=== PATIENT | female | born 1995 | race Caucasian/White ===

== ENCOUNTER 2017-12-20 10:56 | Emergency (ER) | payer OTHER ==
[2017-12-20] MEDS ORDERED: PROPARACAINE 0.5% OPHTH DROPS 15 ML BTL BOTH EYES STA (12:26)
[2017-12-20] MEDS ORDERED: IBUPROFEN 600 MG TAB PO STA (12:27)
--- NOTE | 2017-12-20 12:34 | ED ---
Eye Problem HPI - General Chief complaint: Eye Problems Stated complaint: Headache Time Seen by Provider: 12/20/17 11:57 Source: patient Mode of arrival: ambulatory Limitations: no limitations - History of Present Illness Initial comments: 22-year-old female presenting with bilateral eye pressure and blurred vision. Patient states for the last two months she has had constant eye pressure that is worsened by laying flat and improved with Motrin. She states it is associated with blurred vision. One year ago she had similar symptoms but also had hand numbness. She denies any sensory deficits or focal weakness at this time. She states she was seen at an urgent care who prescribed her a nasal steroid for sinusitis. She was referred to an studio model. Patient states she was seen today at Dr. Angel's office. She states he sent her here due to concern for increased IOP and papilledema. Patient denies any other associated symptoms. chief complaint: eye pain Onset/Timin -: month(s) Onset Description: gradual Location: both eyes If Injury: none Eye Symptoms: blurry vision, other (pressure) Severity: mild Consistency: constant Context: recent uri Associated Symptoms: headache - Related Data Previous Rx's Medication Instructions Recorded Ibuprofen [Motrin] 600 mg PO Q6HR PRN #30 tab 12/20/17 Allergies Allergy/AdvReac Type Severity Reaction Status Date / Time No Known Allergies Allergy Verified 12/20/17 12:05 Review of Systems ROS Statement: Those systems with pertinent positive or pertinent negative responses have been documented in the HPI. ROS Other: All systems not noted in ROS Statement are negative. Constitutional: Denies: fever, chills Eyes: Reports: eye pain, vision change. Denies: eye discharge ENT: Denies: ear pain, hearing loss Respiratory: Denies: cough Cardiovascular: Denies: chest pain Neurological: Reports: headache. Denies: weakness, paresthesias, confusion, abnormal gait, vertigo Past Medical History Past Medical History: No Reported History History of Any Multi-Drug Resistant Organisms: None Reported Past Surgical History: No Surgical Hx Reported Past Psychological History: No Psychological Hx Reported Smoking Status: Current every day smoker Past Alcohol Use History: Occasional Past Drug Use History: None Reported General Exam Limitations: no limitations General appearance: alert, in no apparent distress Head exam: Present: atraumatic, normocephalic Eye exam: Present: EOMI, other (No papilledema. Visual acuity: 201/15 both eyes. 20/15 in right and left eye ). Absent: conjunctival injection, nystagmus , periorbital swelling, periorbital tenderness Pupils: Present: mydriatic ENT exam: Absent: mucous membranes dry Respiratory exam: Present: normal lung sounds bilaterally Cardiovascular Exam: Present: regular rate Neurological exam: Present: alert, oriented X3, normal gait, other (No coordination deficit ). Absent: motor sensory deficit Psychiatric exam: Present: normal affect Course Vital Signs 12/20/17 10:59 Temperature 97.7 F Pulse Rate 71 Respiratory 17 Rate Blood Pressure 125/75 O2 Sat by Pulse 100 Oximetry Medical Decision Making - Medical Decision Making 22-year-old male presenting with headache and eye pain. Initial exam the patient is awake, alert, and in no acute distress. VSS. Pupils has bilateral mydriasis secondary to being dilated at Dr. Angel's office. Spoke with Dr. Angel, who stated that he did not refer the patient to the ED. He stated that the patient had mildly elevated IOPs and he thinks she has glaucoma. He stated he instructed her to follow up with him in one month and that at this time the patient does not require any medical intervention. No indication at this time to recheck pressures. Discussed with patient imaging versus not. Will CT at this time as patient has not had imaging of her head before, however she does not have any neurological deficit. Patient's CT was negative for acute process. Her MOONEY had improved with treatment. She was given return to ED instructions and told to follow back up with Dr. Angel in one month. At this time the patient is stable for outpatient follow up of her eye pain and MOONEY. There is no evidence of ICH, life-threatening infection, intracranial lesions, or acute angle closure glaucoma. Disposition Clinical Impression: Headache, Eye pain Disposition: HOME SELF-CARE Condition: Good Instructions: Eye Pain (ED), General Headache (ED) Additional Instructions: Follow-up with her primary care physician in the next 5 days. If you have worsening blurred vision, headache that is not treatable with Motrin or Tylenol , or focal weakness or numbness return to the emergency department. Prescriptions: Ibuprofen [Motrin] 600 mg PO Q6HR PRN #30 tab PRN Reason: Headache Referrals: Ck Angel MD [STAFF PHYSICIAN] - 1-2 days
--- NOTE | 2017-12-20 13:16 | CT ---
EXAMINATION TYPE: CT brain wo con DATE OF EXAM: 12/20/2017 COMPARISON: NONE HISTORY: Patient complains of headache, blurry vision, and dizziness. Papilledema per order. CT DLP: 990 mGycm. Automated Exposure Control for Dose Reduction was Utilized. TECHNIQUE: CT scan of the head is performed without contrast. FINDINGS: There is no acute intracranial hemorrhage, mass effect, or midline shift identified. The ventricles and sulci are within normal limits in size. Foley-white matter differentiation is preserv ed. Persistent anterior metopic suture incidentally noted. Visualized sinuses are clear. The. Visuali zed globes are intact bilaterally. IMPRESSION: No acute intracranial hemorrhage or midline shift is seen. Unremarkable study
[2017-12-20 13:48] VITALS: BP 125/64; PULSE 80; RESP 18; TEMP 99
== END 2017-12-20 13:45 | disposition home or self-care (01) ==
LOC: EC 10:56
DX: R51 Headache (principal); H57.13 Ocular pain, bilateral; H53.8 Other visual disturbances; F17.200 Nicotine dependence, unspecified, uncomplicated
CPT/HCPCS: 70450; 99283

== ENCOUNTER 2019-01-10 23:05 | Emergency (ER) | payer BC, OTHER ==
[2019-01-10 23:12] VITALS: RESP 18; TEMP 98.2
--- NOTE | 2019-01-10 23:49 | ED ---
Female Urogenital HPI - General Source: patient Mode of arrival: ambulatory Limitations: no limitations - History of Present Illness Last Menstrual Period: 12/28/18 <Tatum Quintero - Last Filed: 01/11/19 00:54> <Tonja Pinon - Last Filed: 01/11/19 01:11> - General Chief complaint: Vaginal Bleeding Stated complaint: Vaginal Bleeding, Abdominal Pain Time Seen by Provider: 01/10/19 23:13 - History of Present Illness Initial comments: 23-year-old female patient presents to the emergency department today for evaluation of vaginal bleeding. Patient states that she had intercourse with her girlfriend this evening, states that she had long fingernails and may have c ut her accidentally. Patient states once they were finishing noticed bleeding on the bed. States she did put a pad on has not had a change this pad. States the bleeding has slowed however still present so she was concerned and came here for further evaluation. She states her tetanus vaccine is up-to-date. States her period was 2 weeks ago. Denies any chance of . Patient denies any recent rash, fever, chills, shortness breath, chest pain, abdominal pain, nausea, vomiting, diarrhea, constipation, back pain, numbness, tingling, dizziness, weakness, hematuria, dysuria, urinary urgency, urinary frequency, headache, visual changes, or any other complaints. (Tatum Quintero) - Related Data Previous Rx's Medication Instructions Recorded Ibuprofen [Motrin] 600 mg PO Q6HR PRN #30 tab 12/20/17 Allergies Allergy/AdvReac Type Severity Reaction Status Date / Time No Known Allergies Allergy Verified 01/10/19 23:12 Review of Systems ROS Other: All systems not noted in ROS Statement are negative. <Tatum Quintero - Last Filed: 01/11/19 00:54> ROS Other: All systems not noted in ROS Statement are negative. <Tonja Pinon - Last Filed: 01/11/19 01:11> ROS Statement: Those systems with pertinent positive or pertinent negative responses have been documented in the HPI. Past Medical History Past Medical History: Hypertension History of Any Multi-Drug Resistant Organisms: None Reported Past Surgical History: No Surgical Hx Reported Additional Past Surgical History / Comment(s): wisdom teeth removal, Past Psychological History: No Psychological Hx Reported Smoking Status: Current every day smoker Past Alcohol Use History: Daily Past Drug Use History: None Reported <Tatum Quintero M - Last Filed: 01/11/19 00:54> General Exam Limitations: no limitations General appearance: alert, in no apparent distress, other (This is a well-dev eloped, well-nourished adult female patient in no acute distress. Vital signs upon presentation are temperature 98.2F, pulse 97, respirations 18, blood pressure 133/89, pulse ox 97% on room air.) Respiratory exam: Present: normal lung sounds bilaterally. Absent: respiratory distress, wheezes, rales, rhonchi, stridor Cardiovascular Exam: Present: regular rate, normal rhythm, normal heart sounds. Absent: systolic murmur, diastolic murmur, rubs, gallop, clicks GI/Abdominal exam: Present: soft, normal bowel sounds. Absent: distended, tenderness, guarding, rebound, rigid External exam: Present: other (Patient has a small 1 cm laceration noted to the labia minora on the left side. No active bleeding.) Speculum exam: Present: normal speculum exam. Absent: vaginal bleeding Neurological exam: Present: alert, oriented X3, CN II-XII intact Psychiatric exam: Present: normal affect, normal mood Skin exam: Present: warm, dry, intact, normal color. Absent: rash <Tatum Quintero M - Last Filed: 01/11/19 00:54> Course Vital Signs 01/10/19 01/11/19 01/11/19 23:09 00:07 00:09 Temperature 98.2 F 98.2 F 98.2 F Pulse Rate 97 67 67 Respiratory 18 18 18 Rate Blood Pressure 133/89 113/71 113/71 O2 Sat by Pulse 97 98 98 Oximetry Medical Decision Making <Tatum Quintero M - Last Filed: 01/11/19 00:54> <Tonja Pinon - Last Filed: 01/11/19 01:11> - Medical Decision Making 23-year-old female patient presents to the emergency department today for evaluation of vaginal bleeding after intercourse. Physical examination did reveal a small 1 cm laceration to the left labia minora. Vaginal speculum exam is unremarkable no vaginal bleeding. This was not exhibiting any current bleeding. Did not require repair. We did discuss wound care and sitz baths. She is instructed follow-up with her primary care physician for recheck in 1-2 days. Return parameters discussed in detail patient verbalizes understanding and agrees with this plan. (Tatum Quintero) I was available for consultation in the emergency department. The history and physical exam were done by the midlevel provider. I was consulted for this patient's care. I reviewed the case with the midlevel provider and based on their presentation of the patient, I agree with the assessment, medical decision making and plan of care as documented. (Tonja Pinon) Disposition Is patient prescribed a controlled substance at d/c from ED?: No Time of Disposition: 23:49 <Tatum Quintero - Last Filed: 01/11/19 00:54> <Tonja Pinon - Last Filed: 01/11/19 01:11> Clinical Impression: Laceration of labia minora Disposition: HOME SELF-CARE Condition: Good Instructions (If sedation given, give patient instructions): Laceration (ED) Additional Instructions: Keep area clean and dry. Take Tylenol Motrin for pain control. Do sits baths to aid in healing. Return to the emergency department immediately for any new, worsening, or concerning symptoms. Referrals: Rowan Dill MD [Primary Care Provider] - 1-2 days
[2019-01-11 00:08] VITALS: BP 113/71; PULSE 67
== END 2019-01-11 00:09 | disposition home or self-care (01) ==
LOC: EC 23:05
DX: S31.41XA Laceration without foreign body of vagina and vulva, initial encounter (principal); R10.9 Unspecified abdominal pain; F17.200 Nicotine dependence, unspecified, uncomplicated; W45.8XXA Other foreign body or object entering through skin, initial encounter; Y93.89 Activity, other specified
CPT/HCPCS: 99283

== ENCOUNTER 2019-06-01 19:23 | Emergency (ER) | payer BC, OTHER ==
[2019-06-01 20:02] VITALS: BP 103/63; PULSE 89; RESP 18; TEMP 98
[2019-06-01 20:05] LABS: Amphetamine Screen,Urine Not Detected (NotDetected); Barbiturate Screen,Urine Not Detected (NotDetected); Benzodiazepines Screen,Urine Not Detected (NotDetected); Cocaine Screen,Urine Not Detected (NotDetected); Methadone Screen, Urine Not Detected (NotDetected); Opiate Screen,Urine Not Detected (NotDetected); Oxycodone Screen, Urine Not Detected (NotDetected); Phencyclidine Screen,Urine Not Detected (NotDetected); Tricyclic Antidepressant,Urine Not Detected (NotDetected); Urn Cannabinoid Scrn Not Detected (NotDetected)
--- NOTE | 2019-06-01 21:08 | ED ---
Psych HPI - General Chief Complaint: Psychiatric Symptoms Stated Complaint: Suicidal Time Seen by Provider: 06/01/19 19:27 Source: patient, EMS Mode of arrival: EMS - History of Present Illness Initial Comments: 24-year-old female past history of depression present today for chief complaint of suicidal ideation. Patient states she was walking on her home attending put a belt around her neck. She states that she thought about hanging herself but states that is not how she "wanted to go". Patient states she does struggle depression. Patient states she is not sure if she is really suicidal. Patient states she has had ideations the past. Patient denies any specific life stressors. Patient states she has had increased depression. A friend was concerned that she was talking to when she expressed her what to commit suicide, please were called and placed is brought to the emergency department for evaluation. Upon arrival patient denies current suicidal ideations but admit to suicidal ideations earlier. Patient doesn't depression. Denies homicidal ideation remaining review of systems negative denies attempt at committing suicide denies ingestion upper stricture nonprescription drugs or pills - Related Data Home Medications Medication Instructions Recorded Confirmed No Known Home Medications 06/01/19 06/01/19 Allergies Allergy/AdvReac Type Severity Reaction Status Date / Time No Known Allergies Allergy Verified 06/01/19 20:15 Review of Systems ROS Statement: Those systems with pertinent positive or pertinent negative responses have been documented in the HPI. ROS Other: All systems not noted in ROS Statement are negative. Past Medical History Past Medical History: Hypertension History of Any Multi-Drug Resistant Organisms: None Reported Past Surgical History: No Surgical Hx Reported Additional Past Surgical History / Comment(s): wisdom teeth removal, Past Psychological History: No Psychological Hx Reported Smoking Status: Current every day smoker Past Alcohol Use History: Daily Past Drug Use History: None Reported General Exam - General Exam Comments Initial Comments: General: The patient is awake and alert, in no distress Eye: Pupils are equal, round and reactive to light, extra-ocular movements are intact. No nystagmus. There is normal conjunctiva bilaterally. No signs of icterus. Ears, nose, mouth and throat: There are moist mucous membranes and no oral lesions. Neck: The neck is supple, there is no tenderness or JVD. Cardiovascular: There is a regular rate and rhythm. No murmur, rub or gallop is appreciated. Respiratory: Lungs are clear to auscultation, respirations are non-labored, breath sounds are equal. No wheezes, stridor, rales, or rhonchi. Gastrointestinal: Soft, non-distended, non-tender abdomen without masses or organomegaly noted. There is no rebound or guarding present. Musculoskeletal: Normal ROM, no tenderness. Strength 5/5. Sensation intact. Pulses equal bilaterally 2+. Neurological: A&O x 3. CN II-XII intact, There are no obvious motor or sensory deficits. Coordination appears grossly intact. Speech is normal. Skin: Skin is warm and dry and no rashes or lesions are noted. Psychiatric: Cooperative Limitations: no limitations Course Vital Signs 06/01/19 19:36 Temperature 98 F Pulse Rate 89 Respiratory 18 Rate Blood Pressure 103/63 O2 Sat by Pulse 96 Oximetry Medical Decision Making - Medical Decision Making 24-year-old female presenting for psychiatric evaluation for suicidal ideation with plan. Patient had felt around her neck earlier today. Patient states she struggled to depression denies current suicidal ideations are. Patient has demonstrated quite concerning behaviors including wearing a belt around neck today. Once patient is sober she is medically cleared for EPS evaluation. EPS recommended admission. Patient is agreeable. Patient is stable for transportation to the psychiatric floor. Certified by attending Dr. Pinon - Lab Data Result diagrams: 06/01/19 22:03 Lab Results 06/01/19 06/01/19 06/01/19 Range/Units 19:45 19:45 19:45 WBC (3.8-10.6) k/uL RBC (3.80-5.40) m/uL Hgb (11.4-16.0) gm/dL Hct (34.0-46.0) % MCV (80.0-100.0) fL MCH (25.0-35.0) pg MCHC (31.0-37.0) g/dL RDW (11.5-15.5) % Plt Count (150-450) k/uL Neutrophils % % Lymphocytes % % Monocytes % % Eosinophils % % Basophils % % Neutrophils # (1.3-7.7) k/uL Lymphocytes # (1.0-4.8) k/uL Monocytes # (0-1.0) k/uL Eosinophils # (0-0.7) k/uL Basophils # (0-0.2) k/uL Urine Color Colorless Urine Appearance Clear (Clear) Urine pH 6.0 (5.0-8.0) Ur Specific Golden 1.002 (1.001-1.035) Urine Protein Negative (Negative) Urine Glucose (UA) Negative (Negative) Urine Ketones Negative (Negative) Urine Blood Negative (Negative) Urine Nitrite Negative (Negative) Urine Bilirubin Negative (Negative) Urine Urobilinogen <2.0 (<2.0) mg/dL Ur Leukocyte Esterase Negative (Negative) Urine HCG, Qual Not Detected (Not Detectd) Urine Opiates Screen Not Detected (NotDetected) Ur Oxycodone Screen Not Detected (NotDetected) Urine Methadone Screen Not Detected (NotDetected) Ur Propoxyphene Screen Not Detected (NotDetected) Ur Barbiturates Screen Not Detected (NotDetected) U Tricyclic Antidepress Not Detected (NotDetected) Ur Phencyclidine Scrn Not Detected (NotDetected) Ur Amphetamines Screen Not Detected (NotDetected) U Methamphetamines Scrn Not Detected (NotDetected) U Benzodiazepines Scrn Not Detected (NotDetected) Urine Cocaine Screen Not Detected (NotDetected) U Marijuana (THC) Screen Not Detected (NotDetected) 06/01/19 Range/Units 22:03 WBC 10.1 (3.8-10.6) k/uL RBC 4.73 (3.80-5.40) m/uL Hgb 14.4 (11.4-16.0) gm/dL Hct 41.9 (34.0-46.0) % MCV 88.6 (80.0-100.0) fL MCH 30.4 (25.0-35.0) pg MCHC 34.3 (31.0-37.0) g/dL RDW 11.6 (11.5-15.5) % Plt Count 279 (150-450) k/uL Neutrophils % 68 % Lymphocytes % 25 % Monocytes % 4 % Eosinophils % 2 % Basophils % 0 % Neutrophils # 6.9 (1.3-7.7) k/uL Lymphocytes # 2.5 (1.0-4.8) k/uL Monocytes # 0.4 (0-1.0) k/uL Eosinophils # 0.2 (0-0.7) k/uL Basophils # 0.0 (0-0.2) k/uL Urine Color Urine Appearance (Clear) Urine pH (5.0-8.0) Ur Specific Golden (1.001-1.035) Urine Protein (Negative) Urine Glucose (UA) (Negative) Urine Ketones (Negative) Urine Blood (Negative) Urine Nitrite (Negative) Urine Bilirubin (Negative) Urine Urobilinogen (<2.0) mg/dL Ur Leukocyte Esterase (Negative) Urine HCG, Qual (Not Detectd) Urine Opiates Screen (NotDetected) Ur Oxycodone Screen (NotDetected) Urine Methadone Screen (NotDetected) Ur Propoxyphene Screen (NotDetected) Ur Barbiturates Screen (NotDetected) U Tricyclic Antidepress (NotDetected) Ur Phencyclidine Scrn (NotDetected) Ur Amphetamines Screen (NotDetected) U Methamphetamines Scrn (NotDetected) U Benzodiazepines Scrn (NotDetected) Urine Cocaine Screen (NotDetected) U Marijuana (THC) Screen (NotDetected) Disposition Clinical Impression: Planning to commit suicide, Depression Disposition: TRANSFER TO PSYCH HOSP/UNIT Condition: Stable Is patient prescribed a controlled substance at d/c from ED?: No Referrals: None,Stated [Primary Care Provider] - 1-2 days Time of Disposition: 21:51
[2019-06-01 21:50] LABS: Appearance,Urine Clear (Clear); Bilirubin,Urine Negative (Negative); Blood,Urine Negative (Negative); Color,Urine Colorless; Glucose,Urine (UA) Negative (Negative); Ketones,Urine Negative (Negative); Leukocyte Esterase,Urine Negative (Negative); Nitrite,Urine Negative (Negative); Protein,Urine Negative (Negative); Specific Gravity,Urine 1.002 (1.001-1.035); Urobilinogen,Urine <2.0 mg/dL (<2.0)
[2019-06-01 22:12] LABS: Basophils % (A) 0 %; Eosinophils # (A) 0.2 k/uL (0-0.7); Eosinophils % (A) 2 %; HCT 41.9 % (34.0-46.0); HGB 14.4 gm/dL (11.4-16.0); Lymphocytes # (A) 2.5 k/uL (1.0-4.8); Lymphocytes % (A) 25 %; MCH 30.4 pg (25.0-35.0); MCHC 34.3 g/dL (31.0-37.0); MCV 88.6 fL (80.0-100.0); Mean Platelet Volume 7.1; Monocytes # (A) 0.4 k/uL (0-1.0); Monocytes % (A) 4 %; Neutrophils # (A) 6.9 k/uL (1.3-7.7); Neutrophils % (A) 68 %; Platelet Count 279 k/uL (150-450); RBC 4.73 m/uL (3.80-5.40); RDW 11.6 % (11.5-15.5); WBC 10.1 k/uL (3.8-10.6)
[2019-06-01 22:45] LABS: ALT 17 U/L (9-52); AST 19 U/L (14-36); African American GFR (CKD) >90 (>60 ml/min/1.73 sqM); Albumin 4.2 g/dL (3.5-5.0); Alkaline Phosphatase 61 U/L (38-126); Anion Gap 14 mmol/L; Blood Urea Nitrogen 6 mg/dL (7-17); Calcium 9.2 mg/dL (8.4-10.2); Carbon Dioxide 23 mmol/L (22-30); Chloride 104 mmol/L (98-107); Glucose 94 mg/dL (74-99); Potassium 3.7 mmol/L (3.5-5.1); Sodium 141 mmol/L (137-145); Total Bilirubin 0.3 mg/dL (0.2-1.3)
== END 2019-06-02 06:53 ==
LOC: EC 19:23
DX: F32.9 Major depressive disorder, single episode, unspecified (principal); R45.851 Suicidal ideations; F17.200 Nicotine dependence, unspecified, uncomplicated
CPT/HCPCS: 36415; 80053; 80306; 81003; 81025; 82075; 85025; 99285

== ENCOUNTER → 2019-11-06 | Outpatient (CLI) | payer BC ==
--- NOTE | 2019-11-06 21:19 | MR ---
EXAMINATION TYPE: MR brain wo con DATE OF EXAM: 11/06/2019 COMPARISON: NONE HISTORY: Headache, blurred vision, slurred speech, numbness in fingers TECHNIQUE: T1-weighted sagittal, T2, FLAIR, and diffusion axial, and T2 coronal coronal views of the brain are submitted. FINDINGS: There is no evidence of acute ischemia. The ventricles, basal cisterns, and sulci overlying the conv exities are consistent with the patient's age. There is no mass effect. Craniocervical junction maintained. Sella turcica has a normal appearance. No cerebellopontine angle mass. Changes of chronic sinusitis and mastoiditis are noted. Hypertrophy o f the lymphoid tissue of the nasopharynx. WHITE MATTER: There are approximately 5 areas of abnormal signal seen within the white matter scattered bilaterally . All measure less than 5 mm No lesions perpendicular to ventricular system. No callosal lesions. IMPRESSION: 1. Very mild nonspecific white matter changes can be seen with migraine headaches, hypertension. Philip te microvascular ischemia, vasculitis or demyelinating process not entirely excluded correlate clinic ally. 2. Chronic sinusitis and mastoiditis
== END | disposition home or self-care (01) ==
LOC: RADMRIMAIN 15:49
PROVIDERS: ATTEND Internal Medicine
DX: G43.909 Migraine, unspecified, not intractable, without status migrainosus (principal); I10 Essential (primary) hypertension; R90.89 Other abnormal findings on diagnostic imaging of central nervous system
CPT/HCPCS: 70551

== ENCOUNTER → 2019-12-18 | Outpatient (CLI) | payer OTHER ==
[2019-12-18 14:08] VITALS: BP 136/90; PULSE 80; RESP 16
--- NOTE | 2019-12-19 15:12 | P.PAINPG ---
Subjective Progress Note Date: 12/18/19 This is a 24-year-old patient referred by Dr. Lombardi with a chief complaint of headaches, Dr. Fam has diagnosed patient with occipital neuralgia and referred her for occipital nerve blocks. Pain has been present for approximately 2 years, she has severe headaches approximately 2173 month, which lasts up to one week, she also has moderately severe headaches approximately once a week. Headaches are associated with confusion and forgetfulness, as well as finger and mouth numbness. She currently takes Advil PM and states that she gets some relief from sleeping. Pain starts in the back of her eyes, associated with blurry vision and aura, and then she gets a pressure sensation throughout her head, pain is mostly bilateral. She denies any aggravating factors, relieving factors include heat application, keeping her eyes closed, sleep. She is also being evaluated for multiple sclerosis, she has undergone an MRI which shows suspicious lesions. 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 She has been recently prescribed a medication for migraine prevention, however she is unsure which medication this is, she has not yet started taking it as she is waiting for insurance authorization. In addition to above, 13-point review of systems is also negative for chest pain, shortness of breath, changes in vision, changes in hearing, new onset weakness, abdominal pain, diarrhea, extreme fatigue, malaise, fever, skin changes, homicidal or suicidal ideation, or bowel or bladder incontinence. Physical exam: Vital Signs: Reviewed in EMR GENERAL: Well appearing, in no acute distress PSYCH: Mood and affect is appropriate. Awake, alert, and oriented SKIN: Skin color, texture, turgor normal, no rashes or lesions HEENT: Normocephalic, atraumatic. EOM intact CV: No pedal edema RESP: Respirations are unlabored, no audible wheezing GI: Abdomen non-distended MUSCULOSKELETAL: Bilateral upper extremity strength is normal and symmetric. No atrophy or tone abnormalities are noted. Neck: Mild tenderness to palpation over the cervical paraspinous muscles. Spurling negative, Garrison's sign negative. No obvious deformity or signs of trauma. Normal cervical lordotic curve and normal cervical spine range of motio n. Bilateral occipital Tinel's sign is positive. Extremities: Peripheral joint ROM is full and pain free without obvious instability or laxity in all four extremities. No edema or skin discolorations noted. Gait: Gait is normal NEUR: Bilateral upper extremity coordination and muscle stretch reflexes are physiologic and symmetric. No loss of sensation is noted. Cranial nerves are grossly intact. Imaging: MRI brain reviewed Assessment: 1. Occipital neuralgiabilateral 2. Possible multiple sclerosispatient is being worked up for this Plan: 1. Explanation: We discussed that her headaches could be due to multiple causes including migraine headaches, occipital neuralgia, eye strain. I offered occipital nerve blocks, which she would like to proceed with, however I informed her that the block is unlikely to completely alleviate her pain. She expressed understanding. 2. Investigations: None 3. Counseling: None 4. Procedures: We will schedule bilateral occipital nerve blocks 5. Consultations: None 6. Medications: No changes 7. Disposition: For above-mentioned procedure PQRS Measure Charge Sheet Measure #130: Documentation of Current Meds in Medical Chart: Patient's medications documented in chart Measure #226: Tobacco Use: Screen & Cessation Intervention: Pt not a tobacco user Measure #111: Pneumonia Vaccination: Pneumococcal vaccine NOT administered or previously given Measure #47: Advance Care Plan: Advance care planning discussed & documented, pt chose/unable to give Measure #412: Opioid Treatment Agreement: No documentation of signed opioid treatment agreement Measure #408: Opioid Therapy Follow-up Evaluation: Patient had NO f/u eval minimum every 3 months during opioid therapy Measure #317: Preventitive Care & Scrn High Bld Press & F/U: Pre-hypertensive or hypertensive BP documented, pt will f/u with PCP Measure #128: Body Mass Index (BMI) Screening & Follow-up: BMI documented ABOVE normal parameters - f/u documented Measure #131: Pain Assessment & Follow-up: Pain positive & plan documented, Follow-up scheduled Measure #431: Unhealthy Alcohol Use Preventative Care & Scrn: Patient not identified as an unhealthy alcohol user PQRS Narrative: Smoking Status Never smoker Pain Intensity [None] 0 Scale Used Numeric (1 - 10) Home Medications: Ambulatory Orders ALPRAZolam [Xanax] 0.5 mg PO DAILY PRN 12/14/19 Phentermine HCl [Adipex-P] 37.5 mg PO DAILY 12/14/19 Sertraline [Zoloft] 50 mg PO DAILY 12/14/19 Controlled Substance Measures - Controlled Substance Measures Is patient prescribed a controlled substance at discharge?: No
== END | disposition home or self-care (01) ==
LOC: PNWHC3 13:40
PROVIDERS: ATTEND Anesthesiology
DX: M54.81 Occipital neuralgia (principal); Z79.899 Other long term (current) drug therapy
CPT/HCPCS: 99211

== ENCOUNTER → 2019-12-26 | Day surgery (SDC) | payer OTHER ==
[2019-12-22 13:45] VITALS: BMI 33.6
[~2019-12-26] MED LIST: IV FLUID CONTINUATION 650 ML IV ONE; LACTATED RINGERS 1,000 ML IV SCH; LIDOCAINE 1% (10MG/ML) FOR IV START INTRADERMA ONE; ROPIVACAINE 5MG/ML 20ML VIAL ONE; methylPREDNISolone ACETATE 40 MG/ML 1 ML VIAL ONE
[2019-12-26 07:00] VITALS: RESP 20; TEMP 97.9
[2019-12-26 07:05] LABS: Glucose,Whole Blood 87 mg/dL (75-99)
--- NOTE | 2019-12-26 07:20 | P.GSHP ---
History of Present Illness H&P Date: 12/26/19 This is 24 years old female with a history of chronic severe headache, she is diagnosed with bilateral occipital neuralgia, she is here for bilateral greater occipital nerve block. Past Medical History Past Medical History: Eye Disorder, Hypertension Additional Past Medical History / Comment(s): Severe headaches where she can't see or talk, states has memory loss and her mouth and fingers are tingly. Glaucoma, Optic nerve damage. History of Any Multi-Drug Resistant Organisms: None Reported Past Surgical History: No Surgical Hx Reported Additional Past Surgical History / Comment(s): [place] teeth removal, Laser eye surgery R eye. Past Anesthesia/Blood Transfusion Reactions: No Reported Reaction Past Psychological History: Depression Smoking Status: Never smoker Past Alcohol Use History: Heavy Additional Past Alcohol Use History / Comment(s): Does not smoke, but chews tobacco, states was drinking approx a fifth every day, now drinks less than a fifth every 2 weeks. Has recently had a workup by Dr. Fam for MS. Past Drug Use History: None Reported - Past Family History Mother Family Medical History: No Reported History Medications and Allergies Home Medications Medication Instructions Recorded Confirmed Type ALPRAZolam [Xanax] 0.5 mg PO DAILY PRN 12/14/19 12/22/19 History Phentermine HCl [Adipex-P] 37.5 mg PO DAILY 12/14/19 12/22/19 History Sertraline [Zoloft] 50 mg PO DAILY 12/14/19 12/22/19 History Allergies Allergy/AdvReac Type Severity Reaction Status Date / Time No Known Allergies Allergy Verified 12/22/19 13:35 Surgical - Exam Vital Signs Temp Pulse Resp BP Pulse Ox 97.9 F 77 20 106/52 97 12/26/19 06:58 12/26/19 06:58 12/26/19 06:58 12/26/19 06:58 12/26/19 06:58 Vital Signs: Reviewed in EMR GENERAL: Well appearing, in no acute distress PSYCH: Mood and affect is appropriate. Awake, alert, and oriented SKIN: Skin color, texture, turgor normal, no rashes or lesions HEENT: Normocephalic, atraumatic. EOM intact CV: No pedal edema RESP: Respirations are unlabored, no audible wheezing GI: Abdomen non-distended MUSCULOSKELETAL: Bilateral upper extremity strength is normal and symmetric. No atrophy or tone abnormalities are noted. Neck: Mild tenderness to palpation over the cervical paraspinous muscles. Spurling negative, Garrison's sign negative. No obvious deformity or signs of trauma. Normal cervical lordotic curve and normal cervical spine range of motion. Bilateral occipital Tinel's sign is positive. Extremities: Peripheral joint ROM is full and pain free without obvious instability or laxity in all four extremities. No edema or skin discolorations noted. Gait: Gait is normal NEUR: Bilateral upper extremity coordination and muscle stretch reflexes are physiologic and symmetric. No loss of sensation is noted. Cranial nerves are grossly intact. Assessment and Plan Plan: Assessment and plan= bilateral occipital neuralgia. We will do bilateral occipital nerve block today, procedure risk and benefits and alternatives discussed with patient she agreed with proceeding Time with Patient: Less than 30
--- NOTE | 2019-12-26 07:43 | P.PCN ---
Date of Procedure: 12/26/19 Procedure(s) Performed: Preoperative diagnoses= 1- Greater occipital neuralgia Postoperative diagnoses= same as preoperative diagnosis. Procedure= Bilateral Greater occipital nerve block Anesthesia=none Estimated blood loss=none Procedure indication= the patient had a history of severe chronic neck pain ,and headache, diagnosed with occipital neuralgia exam was positive for severe tenderness over the occipital nerve bilaterally, she will be a good candidate occipital nerve block, patient failed conservative management Procedure description= the patient was seen and identified in the preoperative holding area, risks and benefits and alternative of the procedure and possible complications discussed with the patient, and he agreed with the preceding, patient signed the consent, an IV was started, and vital signs were monitored and were stable throughout the procedure, patient was placed in the sitting position or table and the neck area was prepped and draped with a sterile fashion, vital signs were closely monitored during the procedure, 22-gauge Quincke Spinal needle advanced 1 inch lateral to the occipital protuberance on the right side, at the location of the right occipital nerve , then after negative aspiration for heme and CSF and there was no paresthesia during the injection, 6 ml of Robivacaine 0.5% and 20 mg of Depo-Medrol injected after negative aspiration, the needle removed, and the entire same procedure was repeated for the left Greater occipital nerve. Patient tolerated the procedure well without any complication, The patient returned to supine position after the back was cleaned and a Band- Aid applied, the patient transported to recovery room in stable condition and he was monitored for 30 minutes before he was discharged home and then patient was reexamined before going home and patient was discharged in stable condition and patient will follow up with the pain clinic in a few weeks.
[2019-12-26 07:51] VITALS: BP 123/70; PULSE 86
== END ==
LOC: ORPAIN 06:22
PROVIDERS: ATTEND Specialist
DX: M54.81 Occipital neuralgia (principal); H47.099 Other disorders of optic nerve, not elsewhere classified, unspecified eye; I10 Essential (primary) hypertension; H40.9 Unspecified glaucoma; R41.3 Other amnesia; R20.2 Paresthesia of skin; F32.9 Major depressive disorder, single episode, unspecified; F17.220 Nicotine dependence, chewing tobacco, uncomplicated; Z79.899 Other long term (current) drug therapy
CPT/HCPCS: 81025; 64405; J1030; J2795

== ENCOUNTER 2020-01-01 09:12 | Day surgery (SDC) | payer OTHER ==
[2019-12-28 12:03] VITALS: BMI 34.1
[~2020-01-01 09:12] MED LIST changes: -IV FLUID CONTINUATION 650 ML IV ONE; -LIDOCAINE 1% (10MG/ML) FOR IV START INTRADERMA ONE; +LIDOCAINE 1% (10MG/ML) FOR IV START INTRADERMA PRN; -ROPIVACAINE 5MG/ML 20ML VIAL ONE; -methylPREDNISolone ACETATE 40 MG/ML 1 ML VIAL ONE
[2020-01-01 09:44] VITALS: RESP 16; TEMP 97.7
[2020-01-01] MEDS ORDERED: MIDAZOLAM 2 MG/2 ML VIAL ONE (09:45)
[2020-01-01] MEDS ORDERED: fentaNYL (PF) 50 MCG/ML 2 ML AMP ONE (09:45)
--- NOTE | 2020-01-01 10:19 | P.PCN ---
Date of Procedure: 01/01/20 Surgeon: Racheal Perez Pathology: other Condition: stable Disposition: PACU Description of Procedure: Procedure=1-lumbar puncture .2-opening pressure measurement Preoperative diagnoses= demyelinating lesions in the brain Postoperative diagnosis= same as above Anesthesia= IV sedation with Versed and fentanyl and local lidocaine infiltration 1% 2 mL for skin and subcu infiltration. Condition= stable. Complications=none. Indication for the procedure: The patient was referred to us by her neurologist for diagnostic lumbar puncture to rule out multiple sclerosis. procedure risk and benefits and alternatives discussed with the patient and she was agreeable to proceeding with it. Description of the procedure=the patient was brought into the procedure room and placed in the left lateral position , monitors applied, the back prepped with chlorhexidine , skin was localized with 1% lidocaine, then 22-gauge quinckie Needle advanced slowly at L4 -5 interlaminar space to get access to the intrathecal space. Opening pressure is 27 cm of water .Cerebrospinal fluid was clear with no heme. Only one attempt was needed. No paresthesia was encountered during this procedure .A total of 16 mL of clear cerebrospinal fluid were collected in 4 different tubes. Closing pressure is 18 cm of water. The needle removed, Band-Aid applied , patient tolerated the procedure well without any complications. Further management as per her neurologist.
[2020-01-01] MEDS ORDERED: IV FLUID CONTINUATION 600 ML IV ONE (10:21)
[2020-01-01 10:28] LABS: ALT 16 U/L (4-34); AST 25 U/L (14-36)
[2020-01-01 10:45] LABS: T4, Free (Free Thyroxine) 1.01 ng/dL (0.78-2.19)
[2020-01-01 11:10] VITALS: BP 101/65; PULSE 64
[2020-01-01 11:27] LABS: Glucose,CSF 47 mg/dL (40-70); Total Protein,CSF 27 mg/dL (12-60)
[2020-01-01 11:58] LABS: Appearance,CSF Clear; CSF Tube Number 4
[2020-01-01 11:59] LABS: CSF Tube Volume 4.5; Nucleated Cells, CSF 1 u/L (0-5); Red Blood Cell,CSF 0 u/L (0-10)
[2020-01-01 17:25] LABS: Anti-DNA, DS unit <1.0 IU/mL; Anti-Smith Ab Interp NEGATIVE (NEGATIVE); DNA Double-Stranded NEGATIVE (NEGATIVE)
[2020-01-01 19:01] LABS: Rheumatoid Factor, Qnt 6 IU/mL (0-15)
[2020-01-02 11:06] LABS: Angiotensin-1 Converting Enz. 23 U/L (8-52)
[2020-01-02 12:09] LABS: IgG - CSF 1.6 mg/dL (0.0 - 3.4); IgG/Albumin Index (CSF) 0.46 (0.00 - 0.77)
[2020-01-02 12:39] LABS: VDRL, Qualitative CSF Nonreactive (Nonreactive)
== END 2020-01-01 12:31 ==
LOC: ORPAIN 09:12
PROVIDERS: ATTEND Anesthesiology
DX: G37.9 Demyelinating disease of central nervous system, unspecified (principal); G93.2 Benign intracranial hypertension; H40.9 Unspecified glaucoma
CPT/HCPCS: 81025; 86592; 86235 ×3; 84439; 88108; 84157; 82945; 82040; 82042; 82784; 83916; 82164 ×2; 83873; 84443; 84450; 84460; 86431; 89050; 86618; 86780; 86038; 86225; 87801; 62270; J2250; J3010; 99152; 99153

== ENCOUNTER 2020-01-03 12:32 | Emergency (ER) | payer OTHER ==
[2020-01-03 12:42] VITALS: RESP 18
[2020-01-03] MEDS ORDERED: MAGNESIUM SULFATE-D5W PMX 1 GM in DEXTROSE/WATER 1 100ML.BAG IVPB ONE (13:19)
[2020-01-03] MEDS ORDERED: KETOROLAC 30 MG/ML 1 ML VIAL IVP STA (13:19)
[2020-01-03] MEDS ORDERED: diphenhydrAMINE 50 MG/ML 1 ML VIAL IVP STA (13:19)
[2020-01-03] MEDS ORDERED: METOCLOPRAMIDE 5 MG/ML 2 ML VIAL IVP STA (13:19)
[2020-01-03] MEDS ORDERED: DEXAMETHASONE SOD PHOSPHATE 10 MG/ML 1 ML VIAL IV STA (13:19)
--- NOTE | 2020-01-03 14:08 | ED ---
Headache HPI - General Chief Complaint: Headache Stated Complaint: post spinal tap issues Time Seen by Provider: 01/03/20 12:40 Mode of arrival: ambulatory Limitations: no limitations - History of Present Illness Initial Comments: The patient is a 24-year-old female with past history of occipital neuralgia and possible MS who presents to the emergency room with reported headache. She states that she had a lumbar puncture done on the by anesthesia in our facility. They were performing the puncture to rule out pseudotumor cerebri and MS. The patient is under the care of Dr. Lombardi. She reports that the day of the procedure she went home and is sleeping. She woke the next morning and had intense pain in her head. States this pain is different than her normal he adache pain. States that it is a global ache which starts in the back of her head and wraps around to the front. She has photophobia. Denies fevers or chills. No neck pain or stiffness. The headache is markedly worse when the patient attempts to stand up. States it is much better when she lays down. She has taken one of her "headache medication" and states that it didn't help. Admits to nausea without vomiting. No recent head trauma. No lumbar back pain, redness or swelling. There are no other alleviating, precipitating or modifying factors - Related Data Home Medications Medication Instructions Recorded Confirmed ALPRAZolam [Xanax] 0.25 - 0.5 mg PO DAILY PRN 12/14/19 01/04/20 Phentermine HCl [Adipex-P] 37.5 mg PO DAILY PRN 12/14/19 01/04/20 Sertraline [Zoloft] 50 mg PO DAILY 12/14/19 01/04/20 Ibuprofen/Diphenhydramine HCl 2 cap PO HS PRN 01/04/20 01/04/20 [Advil Pm Liqui-Gels] Allergies Allergy/AdvReac Type Severity Reaction Status Date / Time No Known Allergies Allergy Verified 01/04/20 09:29 Review of Systems ROS Statement: Those systems with pertinent positive or pertinent negative responses have been documented in the HPI. ROS Other: All systems not noted in ROS Statement are negative. Past Medical History Past Medical History: Eye Disorder, Hypertension Additional Past Medical History / Comment(s): Severe headaches where she can't see or talk, states has memory loss and her mouth and fingers are tingly. Glaucoma, Optic nerve damage. History of Any Multi-Drug Resistant Organisms: None Reported Past Surgical History: No Surgical Hx Reported Additional Past Surgical History / Comment(s): [place] teeth removal, Laser eye surgery R eye. PAIN CLINIC PROCEDURES Past Anesthesia/Blood Transfusion Reactions: No Reported Reaction Past Psychological History: Depression Smoking Status: Never smoker Past Alcohol Use History: Occasional Past Drug Use History: None Reported - Past Family History Mother Family Medical History: No Reported History General Exam Limitations: no limitations General appearance: alert, in no apparent distress Head exam: Present: atraumatic, normocephalic, normal inspection Eye exam: Present: normal appearance, PERRL, EOMI. Absent: scleral icterus, conjunctival injection, periorbital swelling ENT exam: Present: normal exam, mucous membranes moist Neck exam: Present: normal inspection. Absent: tenderness, meningismus, lymphadenopathy Respiratory exam: Present: normal lung sounds bilaterally. Absent: respiratory distress, wheezes, rales, rhonchi, stridor Cardiovascular Exam: Present: regular rate, normal rhythm, normal heart sounds. Absent: systolic murmur, diastolic murmur, rubs, gallop, clicks GI/Abdominal exam: Present: soft, normal bowel sounds. Absent: distended, tenderness, guarding, rebound, rigid Extremities exam: Present: normal inspection, full ROM, normal capillary refill. Absent: tenderness, pedal edema, joint swelling, calf tenderness Back exam: Present: normal inspection Neurological exam: Present: alert, oriented X3, CN II-XII intact Psychiatric exam: Present: normal affect, normal mood Skin exam: Present: warm, dry, intact, normal color. Absent: rash Course Vital Signs 01/03/20 01/03/20 12:39 14:58 Temperature 97.5 F L 98.2 F Pulse Rate 105 H 78 Respiratory 18 18 Rate Blood Pressure 127/90 127/72 O2 Sat by Pulse 99 97 Oximetry Medical Decision Making - Medical Decision Making Upon arrival the patient was placed in room 23. A thorough history and physical exam was performed. We did obtain IV access. The patient was given 10 mg of Reglan, 1 g of magnesium, 15 g of Toradol, 50 mg of Benadryl and 10 mg of Decadron. The patient is reevaluated. Continues to report a 5 out of 10 headache. I did recommend blood patch at this time however the patient refused stating that she wanted to go home and "sleep it off". She is able to sit up in bed and ambulate around the emergency department. The patient will be discharged home and is to follow up with her neurologist. Return to the emergency room for any new or worsening symptoms. The patient agreed to this and was discharged home in stable condition Disposition Clinical Impression: Headache following lumbar puncture Disposition: HOME SELF-CARE Condition: Stable Instructions (If sedation given, give patient instructions): Acute Headache (ED) Additional Instructions: Please follow-up with your neurologist in 2-4 days. If you continue to have a headache, or any new or worsening symptoms, return to the emergency department Is patient prescribed a controlled substance at d/c from ED?: No Referrals: Rowan Dill MD [Primary Care Provider] - 1-2 days Torsten Fam MD [STAFF PHYSICIAN] - 1-2 days Time of Disposition: 14:41
[2020-01-03 15:00] VITALS: BP 127/72; PULSE 78; TEMP 98.2
== END 2020-01-03 15:00 | disposition home or self-care (01) ==
LOC: EC 12:32
DX: G97.1 Other reaction to spinal and lumbar puncture (principal); R51 Headache; I10 Essential (primary) hypertension; F32.9 Major depressive disorder, single episode, unspecified; Z79.899 Other long term (current) drug therapy
CPT/HCPCS: 99283; 96365; 96375 ×4; J1200; J1100; J2765; J1885; J3475

== ENCOUNTER 2020-01-04 09:04 | Emergency (ER) | payer OTHER ==
[2020-01-04 09:08] VITALS: BP 111/69; PULSE 95; RESP 17; TEMP 98
[2020-01-04] MEDS ORDERED: HYDROmorphone 0.5 MG/0.5 ML SYRINGE IVP STA (09:54)
[2020-01-04] MEDS ORDERED: CAFFEINE CITRATE 500 MG in DEXTROSE 5% IN WATER 50 ML IVPB STA ×2 (09:54)
[2020-01-04] MEDS ORDERED: SODIUM CHLORIDE 0.9% 1,000 ML IV STA (09:56)
[2020-01-04] MEDS ORDERED: CAFFEINE-SODIUM BENZOATE 500 MG in SODIUM CHLORIDE 0.9% 1,000 ML IVPB ONE (10:15)
--- NOTE | 2020-01-04 11:08 | ED ---
General Adult HPI - General Chief complaint: Headache Stated complaint: Headache Time Seen by Provider: 01/04/20 09:20 Source: patient, RN notes reviewed Mode of arrival: ambulatory Limitations: no limitations - History of Present Illness Initial comments: 24-year-old female presents to the emergency room for a chief complaint of headache. Patient states that she had a spinal tap done by her neurologist 4 days ago. States that this was performed because of white patches found on her brain through an MRI. Patient states her neurologist think she has pseudotumor. States she has had a persistent headache since that time. States the headache improved significantly when lying down and worsens when sitting up. Patient is here in the emergency department yesterday and did have some medications with some improvement however headache returned. Patient denies fevers or chills.Patient has no other complaints at this time including shortness of b reath, chest pain, abdominal pain, nausea or vomiting, or visual changes. - Related Data Home Medications Medication Instructions Recorded Confirmed ALPRAZolam [Xanax] 0.25 - 0.5 mg PO DAILY PRN 12/14/19 01/04/20 Phentermine HCl [Adipex-P] 37.5 mg PO DAILY PRN 12/14/19 01/04/20 Sertraline [Zoloft] 50 mg PO DAILY 12/14/19 01/04/20 Ibuprofen/Diphenhydramine HCl 2 cap PO HS PRN 01/04/20 01/04/20 [Advil Pm Liqui-Gels] Allergies Allergy/AdvReac Type Severity Reaction Status Date / Time No Known Allergies Allergy Verified 01/04/20 09:29 Review of Systems ROS Statement: Those systems with pertinent positive or pertinent negative responses have been documented in the HPI. ROS Other: All systems not noted in ROS Statement are negative. Past Medical History Past Medical History: Eye Disorder, Hypertension Additional Past Medical History / Comment(s): Severe headaches where she can't see or talk, states has memory loss and her mouth and fingers are tingly. Glaucoma, Optic nerve damage. History of Any Multi-Drug Resistant Organisms: None Reported Past Surgical History: No Surgical Hx Reported Additional Past Surgical History / Comment(s): [place] teeth removal, Laser eye surgery R eye. PAIN CLINIC PROCEDURES Past Anesthesia/Blood Transfusion Reactions: No Reported Reaction Past Psychological History: Depression Smoking Status: Never smoker Past Alcohol Use History: Occasional Past Drug Use History: None Reported - Past Family History Mother Family Medical History: No Reported History General Exam Limitations: no limitations General appearance: alert, in no apparent distress Head exam: Present: atraumatic, normocephalic, normal inspection Eye exam: Present: normal appearance, PERRL, EOMI. Absent: scleral icterus, conjunctival injection, periorbital swelling ENT exam: Present: normal exam, mucous membranes moist Neck exam: Present: normal inspection, full ROM. Absent: tenderness, meningismus, lymphadenopathy Respiratory exam: Present: normal lung sounds bilaterally. Absent: respiratory distress, wheezes, rales, rhonchi, stridor Cardiovascular Exam: Present: regular rate, normal rhythm, normal heart sounds. Absent: systolic murmur, diastolic murmur, rubs, gallop, clicks Neurological exam: Present: alert, oriented X3, CN II-XII intact, normal gait Psychiatric exam: Present: normal affect, normal mood Course Vital Signs 01/04/20 09:05 Temperature 98.0 F Pulse Rate 95 Respiratory 17 Rate Blood Pressure 111/69 O2 Sat by Pulse 97 Oximetry Medical Decision Making - Medical Decision Making HPI and physical exam as documented. Yesterday the patient was given migraine cocktail consisting of Reglan, magnesium, Toradol, Benadryl, and Decadron. She did have improvement at that time and wanted to go home. Patient presents again today for persistent headache. Patient was given Dilaudid as well as IV caffeine. States there is minimal improvement but the pain is still a 6 out of 10 and worsens with sitting up. I therefore contacted Dr. Macias about a possible blood patch. He did come down and evaluate patient. They did agree on doing a blood patch today. He states he will fit her in. Occult administered charge who states he could make an SD[facility] account and make patient outpatient procedure. I then called OR scheduling who helped me order the account. They then transferred me to [facility] to discuss this. I discussed this case with Rosa who states that patient can be transferred to recovery, they are ready for her. She requests IV be left in. Disposition Clinical Impression: Headache following lumbar puncture Disposition: HOME SELF-CARE Condition: Good Instructions (If sedation given, give patient instructions): Acute Headache (ED), Lumbar Puncture (ED) Is patient prescribed a controlled substance at d/c from ED?: No Referrals: Rowan Dill MD [Primary Care Provider] - 1-2 days Time of Disposition: 13:21
== END 2020-01-04 13:43 | disposition home or self-care (01) ==
LOC: EC 09:04
DX: G97.1 Other reaction to spinal and lumbar puncture (principal); F32.9 Major depressive disorder, single episode, unspecified; Z79.899 Other long term (current) drug therapy; Y84.4 Aspiration of fluid as the cause of abnormal reaction of the patient, or of later complication, without mention of misadventure at the time of the procedure; Z53.20 Procedure and treatment not carried out because of patient's decision for unspecified reasons
CPT/HCPCS: 99284; 96365; 96375; J1170

== ENCOUNTER 2020-01-04 13:50 | Day surgery (SDC) | payer OTHER ==
[2020-01-04] MEDS ORDERED: SODIUM CHLORIDE 0.9% 1,000 ML IV ONE (14:02)
--- NOTE | 2020-01-04 14:35 | P.CON ---
Consult Note - . Consult date: 01/04/20 Assessment/Plan:: This 24 year old lady comes to the emergency room with history of headache. She had a lumbar puncture done few days ago for diagnostic purposes to rule out demyelinating disease. She went home and next day started having headache which is bifrontal and occipital in location, 8-10 over 10 in intensity, postural in nature aggravated by standing or sitting position and feels better in the supine posture. She also has some photophobia. She came to the emergency room and was given fluids and tried a lot of caffeine but nothing seems to have worked. Anesthesia was consulted for performing epidural blood patch. History and labs were reviewed and informed consent was obtained. The procedure was done under complete aseptic precautions in the PACU area. Patient was positioned in the sitting posture, and the knee chest position and L3-L4 space was identified with previous lumbar puncture callum was noted. The back was cleaned with iodine solution 3 times. 2 mL of 1% lidocaine was infiltrated into the above mentioned space. A 17-gauge Tuhoy needle was inserted into the elbow mentioned space and a loss of resistance to aid with some kind at 3.5cm. The Pre-op nurse obtained 20 mL of blood from the left peripheral IV with fresh venipuncture under aseptic precautions. This was injected under aseptic precautions to the epidural space and any instant relief of headache was noted. The VAS came down to 0 from 10. The epidural needle was taken out. Patient was advised to lay flat for the next half an hour and then can be discharged.
[2020-01-04 14:37] VITALS: RESP 16
[2020-01-04 15:00] VITALS: BP 124/78; PULSE 65
== END 2020-01-04 15:42 | disposition home or self-care (01) ==
LOC: OR 13:50
PROVIDERS: ATTEND Anesthesiology
DX: G97.1 Other reaction to spinal and lumbar puncture (principal)
CPT/HCPCS: 62273

== ENCOUNTER → 2021-01-29 | Outpatient (CLI) | payer BC, OTHER ==
--- NOTE | 2021-01-30 02:44 | MR ---
EXAMINATION TYPE: MR brain wo con DATE OF EXAM: 01/29/2021 COMPARISON: None HISTORY: Headaches, migraines, eye issues, possible pseudotumor cerebri Multiplanar multiecho imaging of the brain was performed without contrast. FINDINGS: Ventricles and sulci appear normal. There is no mass effect nor midline shift. No evidence of intracr anial hemorrhage. Diffusion images show no sign of an acute infarct. The T2 and FLAIR images show fairly normal signal pattern throughout the white matter. There is no ed ryanne. Corpus callosum appears normal. Sella turcica is normal. Brainstem appears normal. IMPRESSION: Normal MR scan of the brain. There is probably minimal right maxillary sinusitis.
== END | disposition home or self-care (01) ==
LOC: RADMRIMAIN 16:31
PROVIDERS: ATTEND Psychiatry & Neurology Neurology
DX: G43.109 Migraine with aura, not intractable, without status migrainosus (principal); G93.2 Benign intracranial hypertension
CPT/HCPCS: 70551

== ENCOUNTER → 2022-10-27 | Outpatient (CLI) | payer BC, OTHER ==
--- NOTE | 2022-10-27 19:21 | CT ---
EXAMINATION TYPE: CT abdomen w con CT DLP: 953.7 mGycm, Automated exposure control for dose reduction was used. DATE OF EXAM: 10/27/2022 6:56 PM COMPARISON: None CLINICAL INDICATION:Female, 27 years old with history of R19.8 R10.33; RUQ and umbilical abdomen sharita n. Pt c/o bleed from umbilicus TECHNIQUE: Axial CT of the abdomen . Sagittal and coronal reformats were created on a separate works tation. Contrast used:100cc mL of Isovue 300 with IV Contrast, Oral contrast used: with Oral Contrast FINDINGS: LOWER CHEST: Unremarkable ABDOMEN Motion limits evaluation the upper abdomen. LIVER: Unremarkable GALLBLADDER AND BILE DUCTS: Gallbladder is not definitively visualized. PANCREAS: Unremarkable. SPLEEN: Unremarkable. ADRENAL GLANDS: Unremarkable. KIDNEYS AND URETERS: No evidence of hydronephrosis or renal calculus. The ureters are unremarkable. PELVIS BLADDER: Unremarkable REPRODUCTIVE: Left ovarian dominant follicles measuring up to 2.7 cm. STOMACH AND BOWEL: No evidence of bowel obstruction. Appendix is normal. PERITONEUM/RETROPERITONEUM: No evidence of pneumoperitoneum or free fluid. . VASCULATURE: No evidence of aortic aneurysm. MUSCULOSKELETAL: No acute osseous abnormalities LYMPH NODES: No gross evidence for lymphadenopathy. SOFT TISSUE/ABDOMINAL WALL: The umbilicus appears within normal limits without evidence of organizing fluid collection or mass. No evidence of organizing fluid collection within the subcutaneous tissues . IMPRESSION: 1. Motion limited exam. No evidence for acute right upper quadrant process. Surgically absent gallbl adder 2. Umbilicus appears within normal limits for CT. 3. Multiple left dominant ovarian follicles which are prominent.
== END | disposition home or self-care (01) ==
LOC: RADCTMAIN 17:21
PROVIDERS: ATTEND Family Medicine
DX: R19.8 Other specified symptoms and signs involving the digestive system and abdomen (principal); R10.33 Periumbilical pain; Z90.49 Acquired absence of other specified parts of digestive tract
CPT/HCPCS: 74160; Q9967 ×2

== ENCOUNTER 2023-02-09 08:47 | Observation (INO) | payer BC, OTHER ==
[2023-02-09] MEDS ORDERED: KETOROLAC 15 MG/ML 1 ML VIAL IVP STA (09:17)
[2023-02-09] MEDS ORDERED: ONDANSETRON 4 MG/2 ML VIAL IVP STA (09:17)
[2023-02-09 09:54] LABS: Partial Thromboplastin Time 25.2 sec (22.0-30.0); Prothrombin Time 10.3 sec (9.0-12.0)
[2023-02-09 10:10] LABS: ALT 14 U/L (4-34); AST 27 U/L (14-36); African American GFR (CKD) >90 (>60 ml/min/1.73 sqM); Albumin 3.4 g/dL (3.5-5.0); Alkaline Phosphatase 45 U/L (38-126); Anion Gap 8 mmol/L; Blood Urea Nitrogen 12 mg/dL (7-17); Calcium 7.6 mg/dL (8.4-10.2); Carbon Dioxide 17 mmol/L (22-30); Chloride 115 mmol/L (98-107); Glucose 73 mg/dL (74-99); Non-African American GFR(CKD) >90 (>60 ml/min/1.73 sqM); Sodium 140 mmol/L (137-145); Total Bilirubin 0.7 mg/dL (0.2-1.3); Total Protein 6.1 g/dL (6.3-8.2)
[2023-02-09 10:12] LABS: Potassium 3.8 mmol/L (3.5-5.1)
[2023-02-09 10:19] LABS: Basophils % (A) 0 %; Eosinophils # (A) 0.1 k/uL (0-0.7); Eosinophils % (A) 1 %; HCT 47.2 % (34.0-46.0); HGB 15.5 gm/dL (11.4-16.0); Lymphocytes # (A) 1.5 k/uL (1.0-4.8); Lymphocytes % (A) 28 %; MCH 30.4 pg (25.0-35.0); MCV 92.1 fL (80.0-100.0); Mean Platelet Volume 7.5; Monocytes # (A) 0.3 k/uL (0-1.0); Monocytes % (A) 6 %; Neutrophils # (A) 3.4 k/uL (1.3-7.7); Neutrophils % (A) 62 %; Platelet Count 216 k/uL (150-450); RBC 5.12 m/uL (3.80-5.40); RDW 12.2 % (11.5-15.5); WBC 5.4 k/uL (3.8-10.6)
--- NOTE | 2023-02-09 10:27 | XR ---
EXAMINATION TYPE: XR chest 2V DATE OF EXAM: 02/09/2023 COMPARISON: NONE HISTORY: Chest pain TECHNIQUE: Frontal and lateral views of the chest are obtained. FINDINGS: There is no focal air space opacity. No evidence for pneumothorax. No pleural effusion. The cardiac silhouette size is within normal limits. The osseous structures are grossly intact. IMPRESSION: 1. No acute cardiopulmonary process.
--- NOTE | 2023-02-09 10:40 | ED ---
General Adult HPI - General Chief complaint: Extremity Problem,Nontraumatic Stated complaint: Pain in shoulder blades Time Seen by Provider: 02/09/23 08:54 Source: patient, RN notes reviewed Mode of arrival: ambulatory Limitations: no limitations - History of Present Illness Initial comments: 27-year-old female presents emergency Department with chief complaint of right- sided shoulder, chest discomfort. Patient states started 1 hour prior arrival states that she was just about to eat food but states never started eating when the pain started. States it hurts to take deep breaths states that she feels like she can't take a deep breath. Patient denies any trauma denies any rashes. Patient states she's had no prior cardiac disease denies any lung disease. Patient states she has no pain into her abdomen but states he was in her shoulder blade but now wraps along her ribs. She denies any fevers or chills no significant cough or cold like symptoms occasionally has a cough. Patient has NO KNOWN DRUG ALLERGIES. Patient states she does have some family chronic history including hypertension, hyperlipidemia. Patient states she does not smo ke but she does use nicotine pouches - Related Data Home Medications Medication Instructions Recorded Confirmed ALPRAZolam [Xanax] 0.25 - 0.5 mg PO DAILY PRN 12/14/19 01/04/20 Phentermine HCl [Adipex-P] 37.5 mg PO DAILY PRN 12/14/19 01/04/20 Sertraline [Zoloft] 50 mg PO DAILY 12/14/19 01/04/20 Ibuprofen/Diphenhydramine HCl 2 cap PO HS PRN 01/04/20 01/04/20 [Advil Pm Liqui-Gels] Allergies Allergy/AdvReac Type Severity Reaction Status Date / Time No Known Allergies Allergy Verified 02/09/23 08:52 Review of Systems ROS Statement: Those systems with pertinent positive or pertinent negative responses have been documented in the HPI. ROS Other: All systems not noted in ROS Statement are negative. Past Medical History Past Medical History: Eye Disorder, Hypertension Additional Past Medical History / Comment(s): Severe headaches where she can't see or talk, states has memory loss and her mouth and fingers are tingly. Glaucoma, Optic nerve damage. History of Any Multi-Drug Resistant Organisms: None Reported Past Surgical History: No Surgical Hx Reported Additional Past Surgical History / Comment(s): [place] teeth removal, Laser eye surgery R eye. PAIN CLINIC PROCEDURES Past Anesthesia/Blood Transfusion Reactions: No Reported Reaction Past Psychological History: Depression Smoking Status: Never smoker Past Alcohol Use History: Occasional Past Drug Use History: None Reported - Past Family History Mother Family Medical History: No Reported History General Exam Limitations: no limitations General appearance: alert, in no apparent distress Head exam: Present: atraumatic, normocephalic, normal inspection Neck exam: Present: normal inspection. Absent: tenderness, meningismus, lymphadenopathy Respiratory exam: Present: normal lung sounds bilaterally. Absent: respiratory distress, wheezes, rales, rhonchi, stridor, chest wall tenderness Cardiovascular Exam: Present: regular rate, normal rhythm, normal heart sounds. Absent: systolic murmur, diastolic murmur, rubs, gallop, clicks GI/Abdominal exam: Present: soft, normal bowel sounds. Absent: distended, tenderness, guarding, rebound, rigid Back exam: Absent: CVA tenderness (R), CVA tenderness (L) Neurological exam: Present: alert Course Vital Signs 02/09/23 08:49 Temperature 97.6 F Pulse Rate 78 Respiratory 18 Rate Blood Pressure 116/76 O2 Sat by Pulse 98 Oximetry EKG Findings - EKG Comments: EKG Findings:: EKG performed at 9:40 sinus rhythm with a rate of 73 UT 148 QRS 108 QT/QTC 410/436 - EKG Results: EKG: interpreted by RUBIN Medical Decision Making - Medical Decision Making Was pt. sent in by a medical professional or institution (, PA, DINKEY OPERATOR SLATE, urgent care, hospital, or intermediate...) When possible be specific @ -No Did you speak to anyone other than the patient for history (EMS, parent, family, police, friend...)? What history was obtained from this source @ -No Did you review nursing and triage notes (agree or disagree)? Why? @ -I reviewed and agree with nursing and triage notes Were old charts reviewed (outside hosp., previous admission, EMS record, old EKG, old radiological studies, urgent care reports/EKG's, intermediate records)? Report findings @ -Presented prior labs the CBC, comp no prior EKG to compare to. Differential Diagnosis (chest pain, altered mental status, abdominal pain women, abdominal pain men, vaginal bleeding, weakness, fever, dyspnea, syncope, headache, dizziness, GI bleed, back pain, seizure, CVA, palpatations, mental health, musculoskeletal)? @ -nDifferential Chest Pain: Stable Angina, Unstable Angina, STEMI, NSTEMI Aortic Dissection, Pneumothorax, Musculoskeletal, Esophageal Spasm GERD, Cholecystitis, Pancreatitis, Zoster, this is not meant to be an all-inclusive list. icable EKG interpreted by me (3pts min.). @ -As above X-rays interpreted by me (1pt min.). @ -Chest x-ray shows no acute process. CT interpreted by me (1pt min.). @ -None done U/S interpreted by me (1pt. min.). @ -None done What testing was considered but not performed or refused? (CT, X-rays, U/S, labs)? Why? @ -Consider CT done d-dimer was negative, x-ray was unremarkable What meds were considered but not given or refused? Why? @ -None Did you discuss the management of the patient with other professionals (professionals i.e. , PA, DINKEY OPERATOR [employer]ATE, lab, RT, psych nurse, forensic social worker, logistics vice president, teacher, chemistry technical officer, child support case officer)? Give summary @ -I did discuss case with Dr. Dsouza on-call for cardiology who comes evaluated the patient. Echocardiogram was ordered. I did discuss case with Dr. Espinal for admission including repeat laboratory studies, cardiology evaluation and echocardiogram Was smoking cessation discussed for >3mins.? @ -No Was critical care preformed (if so, how long)? @ -yes 35 Were there social determinants of health that impacted care today? How? (Home lessness, low income, unemployed, alcoholism, drug addiction, transportation, low edu. Level, literacy, decrease access to med. care, senior living, rehab)? @ -No Was there de-escalation of care discussed even if they declined (Discuss DNR or withdrawal of care, Hospice)? DNR status @ -No What co-morbidities impacted this encounter? (DM, HTN, Smoking, COPD, CAD, Cancer, CVA, ARF, Chemo, Hep., AIDS, mental health diagnosis, sleep apnea, morbid obesity)? @ -None Was patient admitted / discharged? Hospital course, mention meds given and route, prescriptions, significant lab abnormalities, going to OR and other pertinent info. @ -Admitted patient has elevated troponin with right-sided pleuritic chest pain, right shoulder pain. Patient has no EKG changes, chest x-ray patient was started on heparin patient was admitted to medicine with consult cardiology who were both contacted. Undiagnosed new problem with uncertain prognosis? @ -No Drug Therapy requiring intensive monitoring for toxicity (Heparin, Nitro, I nsulin, Cardizem)? @ -Heparin Were any procedures done? @ -No Diagnosis/symptom? @ -Pleuritic chest pain, over the troponin Acute, or Chronic, or Acute on Chronic? @ -Acute Uncomplicated (without systemic symptoms) or Complicated (systemic symptoms)? @ -Complicated Side effects of treatment? @ -No Exacerbation, Progression, or Severe Exacerbation? @ -No Poses a threat to life or bodily function? How? (Chest pain, [place], NM, pneumonia, PE, COPD, DKA, ARF, appy, cholecystitis, CVA, Diverticulitis, Homicidal, Suicidal, threat to staff... and all critical care pts) @ -Yes patient has elevated troponin concerning for cardiac injury and family to cardiac arrest - Lab Data Result diagrams: 02/09/23 09:31 02/09/23 09:31 Lab Results 02/09/23 02/09/23 02/09/23 Range/Units 09:31 09:31 09:31 WBC 5.4 (3.8-10.6) k/uL RBC 5.12 (3.80-5.40) m/uL Hgb 15.5 (11.4-16.0) gm/dL Hct 47.2 H (34.0-46.0) % MCV 92.1 (80.0-100.0) fL MCH 30.4 (25.0-35.0) pg MCHC 33.0 (31.0-37.0) g/dL RDW 12.2 (11.5-15.5) % Plt Count 216 (150-450) k/uL MPV 7.5 Neutrophils % 62 % Lymphocytes % 28 % Monocytes % 6 % Eosinophils % 1 % Basophils % 0 % Neutrophils # 3.4 (1.3-7.7) k/uL Lymphocytes # 1.5 (1.0-4.8) k/uL Monocytes # 0.3 (0-1.0) k/uL Eosinophils # 0.1 (0-0.7) k/uL Basophils # 0.0 (0-0.2) k/uL PT 10.3 (9.0-12.0) sec INR 1.0 (<1.2) APTT 25.2 (22.0-30.0) sec D-Dimer 0.20 (<0.60) mg/L FEU Sodium 140 (137-145) mmol/L Potassium 3.8 (3.5-5.1) mmol/L Chloride 115 H (98-107) mmol/L Carbon Dioxide 17 L (22-30) mmol/L Anion Gap 8 mmol/L BUN 12 (7-17) mg/dL Creatinine 0.60 (0.52-1.04) mg/dL Est GFR (CKD-EPI)AfAm >90 (>60 ml/min/1.73 sqM) Est GFR (CKD-EPI)NonAf >90 (>60 ml/min/1.73 sqM) Glucose 73 L (74-99) mg/dL Calcium 7.6 L (8.4-10.2) mg/dL Total Bilirubin 0.7 (0.2-1.3) mg/dL AST 27 (14-36) U/L ALT 14 (4-34) U/L Alkaline Phosphatase 45 (38-126) U/L Troponin I (0.000-0.034) ng/mL Total Protein 6.1 L (6.3-8.2) g/dL Albumin 3.4 L (3.5-5.0) g/dL 02/09/23 Range/Units 09:31 WBC (3.8-10.6) k/uL RBC (3.80-5.40) m/uL Hgb (11.4-16.0) gm/dL Hct (34.0-46.0) % MCV (80.0-100.0) fL MCH (25.0-35.0) pg MCHC (31.0-37.0) g/dL RDW (11.5-15.5) % Plt Count (150-450) k/uL MPV Neutrophils % % Lymphocytes % % Monocytes % % Eosinophils % % Basophils % % Neutrophils # (1.3-7.7) k/uL Lymphocytes # (1.0-4.8) k/uL Monocytes # (0-1.0) k/uL Eosinophils # (0-0.7) k/uL Basophils # (0-0.2) k/uL PT (9.0-12.0) sec INR (<1.2) APTT (22.0-30.0) sec D-Dimer (<0.60) mg/L FEU Sodium (137-145) mmol/L Potassium (3.5-5.1) mmol/L Chloride (98-107) mmol/L Carbon Dioxide (22-30) mmol/L Anion Gap mmol/L BUN (7-17) mg/dL Creatinine (0.52-1.04) mg/dL Est GFR (CKD-EPI)AfAm (>60 ml/min/1.73 sqM) Est GFR (CKD-EPI)NonAf (>60 ml/min/1.73 sqM) Glucose (74-99) mg/dL Calcium (8.4-10.2) mg/dL Total Bilirubin (0.2-1.3) mg/dL AST (14-36) U/L ALT (4-34) U/L Alkaline Phosphatase (38-126) U/L Troponin I 0.046 H* (0.000-0.034) ng/mL Total Protein (6.3-8.2) g/dL Albumin (3.5-5.0) g/dL Critical Care Time Critical Care Time: Yes Total Critical Care Time: 35 Disposition Clinical Impression: Pleuritic chest pain, Elevated troponin Disposition: ADMITTED IP TO THIS [facility] Condition: Fair Referrals: Lazara Alberto DO [Primary Care Provider] - 1-2 days Time of Disposition: 10:41
[2023-02-09] MEDS ORDERED: HEPARIN SODIUM 1,000 UN/ML (10ML VL) IV PRN (10:51)
[2023-02-09] MEDS ORDERED: HEPARIN SODIUM 1,000 UN/ML (10ML VL) IV ONE (10:51)
[2023-02-09] MEDS ORDERED: ASPIRIN 81 MG PO STA (10:51)
[2023-02-09] MEDS ORDERED: NITROGLYCERIN SL TABS 0.4 MG TAB SUBLINGUAL PRN (10:51)
[2023-02-09 10:58] LABS: Appearance,Urine Clear (Clear); Bilirubin,Urine Negative (Negative); Blood,Urine Negative (Negative); Color,Urine Yellow; Glucose,Urine (UA) Negative (Negative); Ketones,Urine Negative (Negative); Leukocyte Esterase,Urine Moderate (Negative); Mucus,Urine Rare /hpf; Nitrite,Urine Negative (Negative); PH, Urine 5.5 (5.0-8.0); Protein,Urine Negative (Negative); RBC,Urine 1 /hpf (0-5); Specific Gravity,Urine 1.021 (1.001-1.035); Squamous Epithelial Cell,Urine 2 /hpf (0-4); Urobilinogen,Urine <2.0 mg/dL (<2.0); WBC,Urine 3 /hpf (0-5)
[2023-02-09] MEDS ORDERED: HEPARIN SOD,PORK IN 0.45% NACL 25,000 UNIT in 0.45% NACL 1 250ML.BAG IV SCH (11:00)
[2023-02-09 15:17] VITALS: RESP 16
[2023-02-10] MEDS ORDERED: ACETAMINOPHEN TAB 325 MG TAB PO PRN (07:49)
[2023-02-10 08:38] VITALS: TEMP 97.9
[2023-02-10 08:51] LABS: Mean Platelet Volume 7.9; Platelet Count 193 k/uL (150-450)
[2023-02-10] MEDS ORDERED: acetaZOLAMIDE 250 MG TAB PO SCH (09:00)
[2023-02-10] MEDS ORDERED: ASPIRIN 325 MG TAB PO SCH (09:00)
[2023-02-10] MEDS ORDERED: SERTRALINE 100 MG TAB PO SCH (09:00)
--- NOTE | 2023-02-10 09:47 | CA ---
Transthoracic Echo Report Name: Ned Arenas Age: 27 Gender: F : 1995 Exam Date: 02/09/2023 13:04 Exam Location: [facility] Ht (in): 67 Wt (lb): 198 Ordering Physician: Chay Azar Attending/Referring Phys: Property Staff Accountant Marilou Das RDCS Procedure CPT: Indications: chest pain, elevated trop Cardiac Hx: Technical Quality: Good Contrast 1: Total Dose (mL): Contrast 2: Total Dose (mL): MEASUREMENTS (Male / Female) Normal Values 2D ECHO LV Diastolic Diameter PLAX 4.5 cm 4.2 - 5.9 / 3.9 - 5.3 cm LV Systolic Diameter PLAX 3.4 cm IVS Diastolic Thickness 1.1 cm 0.6 - 1.0 / 0.6 - 0.9 cm LVPW Diastolic Thickness 1.0 cm 0.6 - 1.0 / 0.6 - 0.9 cm LV Relative Wall Thickness 0.5 LA Volume 49.2 cm??? 18 - 58 / 22 - 52 cm??? M-MODE Aortic Root Diameter MM 2.6 cm LA Systolic Diameter MM 3.2 cm LA Ao Ratio MM 1.2 AV Cusp Separation MM 1.8 cm DOPPLER AV Peak Velocity 118.9 cm/s AV Peak Gradient 5.7 mmHg AV Mean Velocity 92.9 cm/s AV Mean Gradient 3.7 mmHg AV Velocity Time Integral 26.2 cm LVOT Peak Velocity 95.9 cm/s LVOT Peak Gradient 3.7 mmHg LVOT Velocity Time Integral 19.1 cm MV Area PHT 4.9 cm??? Mitral E Point Velocity 79.7 cm/s Mitral A Point Velocity 93.6 cm/s Mitral E to A Ratio 0.9 MV Deceleration Time 156.0 ms MV E' Velocity 10.3 cm/s Mitral E to MV E' Ratio 7.7 TR Peak Velocity 177.9 cm/s TR Peak Gradient 12.7 mmHg Right Ventricular Systolic Press 17.7 mmHg FINDINGS Left Ventricle Normal Left ventricular size, wall thickness, systolic function with no obvious regional wall motion abnormalities. Normal Left ventricular diastolic filling pattern. Left ventricular ejection fraction is estimated at 55-60 %. Right Ventricle Normal right ventricular size and function. Right ventricular systolic pressure within normal limits. Right Atrium Normal right atrial size. Left Atrium Normal left atrial size. Interatrial septal aneurysm. Mitral Valve Structurally normal mitral valve. Trace mitral regurgitation. Aortic Valve Trileaflet aortic valve. No aortic valve stenosis or regurgitation. Tricuspid Valve Structurally normal tricuspid valve. Trace to mild tricuspid regurgitation. Pulmonic Valve Trace pulmonic regurgitation. Pericardium No pericardial effusion. Aorta Normal size aortic root and proximal ascending aorta. CONCLUSIONS Normal LV systolic function Normal pulmonary artery systolic pressure Normal intracardiac valves Previewed by: Dr. Clay Gary MD (Electronically Signed) Final Date: 10 February 2023 09:46
--- NOTE | 2023-02-10 11:26 | P.CRDCN ---
History of Present Illness Consult date: 02/10/23 Consult reason: chest pain, other (abnormal trop) History of present illness: History of present illness: Patient is a pleasant 27-year-old female with significant past medical history of glaucoma and pseudotumor presented to the emergency department with right shoulder pain and chest discomfort. She reports significant family history of multiple people on her father's side with heart issues. She denies smoking, alcohol or drug use. She reports that around 8:00 yesterday she was sitting on the couch when all of a sudden she developed right shoulder blade pain, this pain was worse with deep breathing and movement. This pain did not get better so she came to the emergency department. She denies any recent injury or strain. The pain did improve with Toradol in the emergency department. Denies any prior history of pain like this, denies any syncope in the past. Labs reviewed: Troponin 0.046,<0.012,<0.012; d-dimer was negative. EKG shows sinus rhythm with sinus arrhythmia, no significant ST or T wave changes, no evidence of pericarditis. She was placed on a heparin drip. She reports the pain does feel a little better this morning. Denies any shortness of breath. Echocardiogram with ejection fraction 5560%, normal intracardiac valves. REVIEW OF SYSTEMS: No fever or chills. No cough or expectoration. No diaphoresi s. Patient denies headache, dizziness, blurred vision, double vision. Patient denies any stomach discomfort. No nausea, vomiting. No hematochezia. No hematemesis. Denies any black stools or blood in his stools. Denies dysuria or hematuria. No muscle weakness or numbness. No chest pain or pressure. Right shoulder pain. PHYSICAL EXAMINATION: This is a 27-year-old female in no apparent distress at t he time of my examination. HEENT: Head is atraumatic, normocephalic. Pupils are equal, round. Sclerae anicteric. Conjunctivae are clear. Mucous membranes of the mouth are moist. Neck is supple. There is no jugular venous distention. No carotid bruit is heard. CHEST EXAMINATION: Lungs are clear to auscultation. No chest wall tenderness is noted on palpation or with deep breathing. HEART EXAMINATION: Heart regular rate and rhythm. S1, S2 heard. No murmurs, gallops or rub. ABDOMEN: Soft, nontender. Bowel sounds are heard. EXTREMITIES: 2+ peripheral pulses with no evidence of peripheral edema and no calf tenderness noted. NEUROLOGIC EXAMINATION: Patient is awake, alert and oriented x3. IMPRESSION AND PLAN: Chest pain, atypical Right shoulder pain Glaucoma Pseudotumor PLAN: Chest pain is atypical, less likely cardiac in more likely musculoskeletal in nature. Initial troponin was elevated however second 2 were completely normal, maybe a lab error. However we will check echocardiogram and stress test to rule out reversible ischemia. Echocardiogram reviewed and unremarkable. Stop heparin. If stress test is unremarkable okay to discharge home. Follow up in 1 week. I am dictating on behalf of Dr. Rad Dsouza's history/physical and assessment/plan. Past Medical History Past Medical History: Eye Disorder, Hypertension Additional Past Medical History / Comment(s): Severe headaches where she can't see or talk, states has memory loss and her mouth and fingers are tingly. Glaucoma, Optic nerve damage. Hypertension has resolved since pt stopped drinking and smoking. History of Any Multi-Drug Resistant Organisms: None Reported Past Surgical History: No Surgical Hx Reported Additional Past Surgical History / Comment(s): [place] teeth removal, Laser eye surgery bilateral eye. PAIN CLINIC PROCEDURES (steroid shots in the back of neck) Past Anesthesia/Blood Transfusion Reactions: No Reported Reaction Past Psychological History: Anxiety, Depression Additional Psychological History / Comment(s): Patient has had a past admission on the mental health unit. Patient has been suicidal in the past but states she hasn't been in years. Smoking Status: Former smoker Past Alcohol Use History: Occasional Additional Past Alcohol Use History / Comment(s): Patient has a history of ETOH and smoking occasionally but never consistently. Patient states she does not drink or smoke anymore but uses nicotine pouches. Past Drug Use History: None Reported - Past Family History Mother Family Medical History: No Reported History Additional Family Medical History / Comment(s): "Heart issues" Father Additional Family Medical History / Comment(s): Father's mother and sister both at a young age of "some sort of heart issue" Medications and Allergies Home Medications Medication Instructions Recorded Confirmed Type L-Theanine(Unknown Dose) 1 cap PO HS 02/09/23 02/09/23 History Sertraline [Zoloft] 100 mg PO DAILY 02/09/23 02/09/23 History acetaZOLAMIDE [Diamox] 250 mg PO DAILY 02/09/23 02/09/23 History Allergies Allergy/AdvReac Type Severity Reaction Status Date / Time promethazine [From Phenergan] AdvReac "face Verified 02/09/23 11:22 dysphoria" Physical Exam Vitals: Vital Signs Temp Pulse Pulse Resp BP BP Pulse Ox 02/10/23 07:50 99 02/10/23 07:46 97.9 F 59 L 16 99/55 99 02/10/23 04:00 97.7 F 56 L 16 103/65 100 02/10/23 02:00 68 16 02/10/23 00:00 98.3 F 68 16 116/76 98 02/09/23 20:00 98.1 F 72 16 97/60 96 02/09/23 16:00 82 02/09/23 15:48 97.9 F 82 16 125/78 97 02/09/23 15:00 68 16 120/60 98 02/09/23 11:26 60 20 116/75 99 02/09/23 11:06 98.1 F 65 16 133/92 100 Intake and Output 02/09/23 02/10/23 02/10/23 22:59 06:59 14:59 Intake Total 540 Balance 540 Intake: Oral 540 Other: Voiding Method Toilet Toilet Toilet # Voids 2 3 Weight 89.811 kg Results 02/10/23 07:08 02/09/23 09:31 Cardiac Enzymes 02/09/23 02/09/23 02/09/23 Range/Units 09:31 09:31 14:50 AST 27 (14-36) U/L Troponin I 0.046 H* <0.012 (0.000-0.034) ng/mL 02/09/23 Range/Units 18:10 AST (14-36) U/L Troponin I <0.012 (0.000-0.034) ng/mL Coagulation 02/09/23 02/09/23 02/10/23 Range/Units 09:31 17:56 07:08 PT 10.3 (9.0-12.0) sec APTT 25.2 46.3 H 47.5 H (22.0-30.0) sec CBC 02/09/23 02/10/23 Range/Units 09:31 07:08 WBC 5.4 (3.8-10.6) k/uL RBC 5.12 (3.80-5.40) m/uL Hgb 15.5 (11.4-16.0) gm/dL Hct 47.2 H (34.0-46.0) % Plt Count 216 193 (150-450) k/uL Comprehensive Metabolic Panel 02/09/23 Range/Units 09:31 Sodium 140 (137-145) mmol/L Potassium 3.8 (3.5-5.1) mmol/L Chloride 115 H (98-107) mmol/L Carbon Dioxide 17 L (22-30) mmol/L BUN 12 (7-17) mg/dL Creatinine 0.60 (0.52-1.04) mg/dL Glucose 73 L (74-99) mg/dL Calcium 7.6 L (8.4-10.2) mg/dL AST 27 (14-36) U/L ALT 14 (4-34) U/L Alkaline Phosphatase 45 (38-126) U/L Total Protein 6.1 L (6.3-8.2) g/dL Albumin 3.4 L (3.5-5.0) g/dL Current Medications Generic Name Dose Route Start Last Admin Trade Name Freq PRN Reason Stop Dose Admin Acetaminophen 650 mg 02/10/23 07:49 02/10/23 07:51 Acetaminophen Tab 325 Mg Tab PO 650 mg Q6HR PRN Administration Fever and/ or Pain Acetazolamide 250 mg 02/10/23 09:00 02/10/23 07:50 Acetazolamide 250 Mg Tab PO 250 mg DAILY GARTH Administration Aspirin 325 mg 02/10/23 09:00 02/10/23 07:50 Aspirin 325 Mg Tab PO 325 mg DAILY GARTH Administration Heparin Sodium (Porcine) 0 unit 02/09/23 10:51 Heparin Sodium 1,000 Un/Ml (10ml Vl) IV Q6HR PRN low ptt Protocol Heparin Sodium/Sodium Chloride 250 mls @ 10 mls/hr 02/09/23 11:00 02/09/23 11:34 25,000 unit/ Sodium Chloride IV 11.134 units/kg/hr .Q24H GARTH 10 mls/hr Administration Protocol 11.134 UNITS/KG/HR Nitroglycerin 0.4 mg 02/09/23 10:51 Nitroglycerin Sl Tabs 0.4 Mg Tab SUBLINGUAL Q5M PRN Chest Pain Sertraline HCl 100 mg 02/10/23 09:00 02/10/23 07:50 Sertraline 100 Mg Tab PO 100 mg DAILY GARTH Administration Intake and Output 02/09/23 02/10/23 02/10/23 22:59 06:59 14:59 Intake Total 540 Balance 540 Intake: Oral 540 Other: Voiding Method Toilet Toilet Toilet # Voids 2 3 Weight 89.811 kg 02/10/23 07:08 02/09/23 09:31
[2023-02-10 11:29] VITALS: BP 121/78; PULSE 66
--- NOTE | 2023-02-10 13:15 | CA ---
Stress Echo Report [place] Age: 27 Gender: F : 1995 Exam Date: 02/10/2023 12:43 Exam Location: [facility] Ht (in): 67 Wt (lb): 198 Ordering Physician: Ange Rubalcava Referring Physician: bry han do,, Hospital Admissions Officer: KEY Technologist Procedure CPT: Indication: chest pain, abnormal troponin ICD-9 Codes: Rhythm: Patient History: Cardiac Medications: Medications in past 24 hours: Contrast: Stress Results Protocol: Hermann Total dose(mL): Exercise Duration (min:sec): 11.[address] Depression (mm): Angina Score: Draper Score: METS: 12.1 Resting HR: 74 Resting BP: 103 / 62 Peak HR: 179 Peak BP: 130 / 74 Max Predicted HR: 195 92 % Max Predicted HR Target HR: 166 Double Product: [id number] Stress Summary: The patient's target heart rate was achieved BP Response: Normal Reason for Termination: Reached target heart rate or work-load Cardiac Symptoms: Test terminated after reaching target heart rate (85% max predicted) ECG Analysis Resting ECG: Stress ECG: Arrhythmia: Echo Analysis Resting Echo: Peak Echo Analysis: MEASUREMENTS (Male/Female) Normal Values CONCLUSIONS Excellent exercise tolerance Normal EKG and echo in response to exercise Dr. Clay Gary MD (Electronically Signed) Final Date: 10 February 2023 13:14
[2023-02-10 16:20] LABS: Chol/HDL Ratio 2.33 Ratio; LDL Cholesterol,Calculated 79.5 mg/dL (0.0-131.0); VLDL Calculation 12.28 mg/dL (5.00-40.00)
--- NOTE | 2023-02-10 19:43 | P.HPIM ---
History of Present Illness H&P Date: 02/10/23 Chief Complaint: Chest pain History and Physical and Discharge Summary: This is a 27-year-old female with past medical history significant for glaucoma, pseudotumor-follows with neurologist, previous chest pain episodes with anxiety and multiple other medical issues. Patient reported yesterday as she was sitting on the couch developed a sudden onset of "sharp shooting pain, inconsistent tightness" of right shoulder blade radiating to ribs, eventually midsternal, worsened with deep inspiration, nonexertional. Reports severity of symptoms lasted approximately one half hour. Positive shortness of breath. Denies syncope. Denied sweats, chills. Denies vaping, denies nicotine dependence. Denies being around anyone ill . Denies any recent illnesses over the last few weeks. Chest x-ray reported no acute cardiopulmonary process. EKG reported sinus rhythm/sinus arrhythmia, and initial troponin 0.046, followed by 2 negative troponins. Heparin drip initiated. Reports shoulder blade and shortness of breath significantly improved this morning. Echo reported normal LV function EF 55-60%, normal pulmonary artery systolic pressure, normal intracardiac valves. Stress echo reported normal EKG and echo and response to exercise, excellent exercise tolerance. Maintaining O2 sats in the high 90s on room air. Afebrile, normal WBC. Hematology unremarkable, d-dimer normal, 0.2, renal function stable, lipid panel pending. Review of Systems ROS Statement: Those systems with pertinent positive or pertinent negative responses have been documented in the HPI. ROS Other: All systems not noted in ROS Statement are negative. Past Medical History Past Medical History: Eye Disorder, Hypertension Additional Past Medical History / Comment(s): Severe headaches where she can't see or talk, states has memory loss and her mouth and fingers are tingly. Glaucoma, Optic nerve damage. Hypertension has resolved since pt stopped drinking and smoking. History of Any Multi-Drug Resistant Organisms: None Reported Past Surgical History: No Surgical Hx Reported Additional Past Surgical History / Comment(s): [place] teeth removal, Laser eye surgery bilateral eye. PAIN CLINIC PROCEDURES (steroid shots in the back of neck) Past Anesthesia/Blood Transfusion Reactions: No Reported Reaction Past Psychological History: Anxiety, Depression Additional Psychological History / Comment(s): Patient has had a past admission on the mental health unit. Patient has been suicidal in the past but states she hasn't been in years. Smoking Status: Former smoker Past Alcohol Use History: Occasional Additional Past Alcohol Use History / Comment(s): Patient has a history of ETOH and smoking occasionally but never consistently. Patient states she does not drink or smoke anymore but uses nicotine pouches. Past Drug Use History: None Reported - Past Family History Mother Family Medical History: No Reported History Additional Family Medical History / Comment(s): "Heart issues" Father Additional Family Medical History / Comment(s): Father's mother and sister both at a young age of "some sort of heart issue" Medications and Allergies Home Medications Medication Instructions Recorded Confirmed Type L-Theanine(Unknown Dose) 1 cap PO HS 02/09/23 02/09/23 History Sertraline [Zoloft] 100 mg PO DAILY 02/09/23 02/09/23 History acetaZOLAMIDE [Diamox] 250 mg PO DAILY 02/09/23 02/09/23 History predniSONE 10 mg PO DIRECTED #18 tab 02/10/23 Rx Allergies Allergy/AdvReac Type Severity Reaction Status Date / Time promethazine [From Phenergan] AdvReac "face Verified 02/09/23 11:22 dysphoria" Physical Exam Vitals: Vital Signs Temp Pulse Pulse Resp BP BP Pulse Ox 02/10/23 13:04 66 02/10/23 11:15 66 16 121/78 99 02/10/23 07:50 99 02/10/23 07:46 97.9 F 59 L 16 99/55 99 02/10/23 04:00 97.7 F 56 L 16 103/65 100 02/10/23 02:00 68 16 02/10/23 00:00 98.3 F 68 16 116/76 98 02/09/23 20:00 98.1 F 72 16 97/60 96 02/09/23 16:00 82 02/09/23 15:48 97.9 F 82 16 125/78 97 02/09/23 15:00 68 16 120/60 98 Intake and Output 02/09/23 02/10/23 02/10/23 22:59 06:59 14:59 Intake Total 540 219.167 Balance 540 219.167 Intake: Intake, IV Titration 219.167 Amount Heparin Sod,Pork in 0.45% 219.167 NaCl 25,000 unit In 0.45 % NaCl 1 250ml.bag @ 11. 134 UNITS/KG/HR 10 mls/hr IV .Q24H GARTH Rx#: [id number] Oral 540 Other: Voiding Method Toilet Toilet Toilet # Voids 2 3 Weight 89.811 kg PHYSICAL EXAM: VITAL SIGNS: [As above] GENERAL: Sitting up in bed, no acute distress HEENT: Atraumatic, normocephalic Conjunctivae normal. eyes normal. NECK: Supple, No JVD. No thyroid enlargement. No LNs CARDIOVASCULAR: S1, S2 regular.. No murmur RESPIRATION: Unlabored, Breath sounds diminished in the bases. No rhonchi or crackles. No bronchial breathing. ABDOMEN: Soft, nondistended, nontender . No guarding. no masses palpable. No ascites, No hepatosplenomegaly.Bowel sounds heard. LEGS: No edema. no swelling PSYCHIATRY: Alert and oriented X3, mood and affect normal. NERVOUS SYSTEM: Cranial N 2-12 grossly normal. No focal deficits. Strength and sensation grossly intact. Skin: Warm and dry, no rash Results CBC & Chem 7: 02/10/23 07:08 02/09/23 09:31 Labs: Abnormal Lab Results - Last 24 Hours (Table) 02/09/23 02/10/23 Range/Units 17:56 07:08 APTT 46.3 H 47.5 H (22.0-30.0) sec Thrombosis Risk Factor Assmnt - Choose All That Apply Any of the Below Risk Factors Present?: No Other Risk Factors: No Other congenital or acquired thrombophilia - If yes, enter type in comment: No Thrombosis Risk Factor Assessment Level: Very Low Risk Assessment and Plan Assessment: Chest pain, atypical with right shoulder pain ,elevated troponin 1,possible pericarditis, possible muscle skeletal, cardiology following Pseudotumor Glaucoma Obesity, BMI 31 Plan: Continue on current medication regime ,monitoring and symptomatic treatment. Maintain heparin drip. Cardiology consult in place, recommendations pending. Patient will be discharged home today in a stable condition with guarded prognosis pending final DC recommendations and clearance per cardiology. Discharge Medication List L-Theanine(Unknown Dose) 1 cap PO HS 02/09/23 [History] Sertraline [Zoloft] 100 mg PO DAILY 02/09/23 [History] acetaZOLAMIDE [Diamox] 250 mg PO DAILY 02/09/23 [History] predniSONE 10 mg PO DIRECTED #18 tab 02/10/23 [Rx] The impression and plan of care has been dictated as directed. : I performed a history and examination of this patient, discussed the same with the dictator. I agree with the dictator's note ,documented as a scribe. Any additional findings or plans will be noted.
== END 2023-02-10 14:01 | disposition home or self-care (01) ==
LOC: EC 08:47 → 3SCARD 11:06
PROVIDERS: ADMIT Family Medicine; ATTEND Family Medicine
DX: R07.81 Pleurodynia (principal); R77.8 Other specified abnormalities of plasma proteins; M25.511 Pain in right shoulder; I10 Essential (primary) hypertension; F32.A Depression, unspecified; G93.2 Benign intracranial hypertension; H40.9 Unspecified glaucoma; F41.9 Anxiety disorder, unspecified; E66.9 Obesity, unspecified; Z68.31 Body mass index [BMI] 31.0-31.9, adult; Z87.891 Personal history of nicotine dependence; Z79.899 Other long term (current) drug therapy; Z82.49 Family history of ischemic heart disease and other diseases of the circulatory system
CPT/HCPCS: 96365; 96366 ×2; 96375; 99291; 36415; 94760; 93005; 93306; 93351; 85379; 80061; 80053; 84484; 85025; 85049; 85610; 85730 ×2; 81001; 71046; G0378 ×2; J2405; J1644 ×2; J1885

== ENCOUNTER 2023-02-22 08:13 | Emergency (ER) | payer BC, OTHER ==
[2023-02-22 08:23] VITALS: TEMP 97.8
[2023-02-22] MEDS ORDERED: SODIUM CHLORIDE 0.9% 1,000 ML IV ONE (08:51)
[2023-02-22 09:11] LABS: Glucose,Whole Blood 85 mg/dL (70-110)
[2023-02-22 09:16] LABS: Basophils % (A) 0 %; Eosinophils # (A) 0.1 k/uL (0-0.7); Eosinophils % (A) 2 %; HGB 15.3 gm/dL (11.4-16.0); Lymphocytes # (A) 1.7 k/uL (1.0-4.8); Lymphocytes % (A) 21 %; MCH 30.3 pg (25.0-35.0); Mean Platelet Volume 7.6; Monocytes # (A) 0.4 k/uL (0-1.0); Monocytes % (A) 5 %; Neutrophils # (A) 5.8 k/uL (1.3-7.7); Neutrophils % (A) 71 %; Platelet Count 206 k/uL (150-450); RBC 5.05 m/uL (3.80-5.40); RDW 12.7 % (11.5-15.5); WBC 8.3 k/uL (3.8-10.6)
[2023-02-22 09:27] LABS: ALT 15 U/L (4-34); AST 19 U/L (14-36); African American GFR (CKD) >90 (>60 ml/min/1.73 sqM); Albumin 3.9 g/dL (3.5-5.0); Alkaline Phosphatase 59 U/L (38-126); Anion Gap 11 mmol/L; Blood Urea Nitrogen 12 mg/dL (7-17); Calcium 8.7 mg/dL (8.4-10.2); Carbon Dioxide 20 mmol/L (22-30); Chloride 107 mmol/L (98-107); Glucose 87 mg/dL (74-99); Non-African American GFR(CKD) >90 (>60 ml/min/1.73 sqM); Potassium 3.7 mmol/L (3.5-5.1); Sodium 138 mmol/L (137-145); Total Bilirubin 0.5 mg/dL (0.2-1.3); Total Protein 6.8 g/dL (6.3-8.2)
[2023-02-22 09:34] LABS: Partial Thromboplastin Time 23.9 sec (22.0-30.0); Prothrombin Time 10.4 sec (9.0-12.0)
[2023-02-22 09:51] VITALS: PULSE 73
[2023-02-22] MEDS ORDERED: diphenhydrAMINE 50 MG/ML 1 ML VIAL IVP STA (10:10)
[2023-02-22] MEDS ORDERED: METOCLOPRAMIDE 5 MG/ML 2 ML VIAL IVP STA (10:10)
[2023-02-22] MEDS ORDERED: KETOROLAC 15 MG/ML 1 ML VIAL IVP STA (10:11)
--- NOTE | 2023-02-22 10:21 | XR ---
EXAMINATION TYPE: XR chest 2V DATE OF EXAM: 02/22/2023 COMPARISON: 02/09/2023 INDICATION: Cough, pain TECHNIQUE: Frontal and lateral views of the chest are obtained. FINDINGS: The heart size is normal. The pulmonary vasculature is normal. The lungs are clear. IMPRESSION: 1. No acute pulmonary process.
--- NOTE | 2023-02-22 10:23 | CT ---
EXAMINATION TYPE: CT brain wo con DATE OF EXAM: 02/22/2023 COMPARISON: 12/20/2017 INDICATION: Confusion, Mouth and hand numbness DLP: 1058 mGycm, Automated exposure control for dose reduction was used. CONTRAST: None CT of the brain is performed utilizing 3 mm thick sections through the posterior fossa and 3 mm thick sections through the remaining calvarium. Study is performed within 24 hours of arrival to the hosp ital. No abnormal hyperdensity is present to suggest an acute intracranial hemorrhage. No mass lesion is evident. No acute infarcts are evident. Ventricles and sulci are appropriate for the patient age. Mild mucosal thickening is within the dependent inferior maxillary sinuses. Remaining paranasal sinus es and mastoid air cells are clear IMPRESSIONS: 1. No acute intracranial process. Follow-up MRI can be performed as clinically indicated.
--- NOTE | 2023-02-22 10:25 | ED ---
General Adult HPI - General Chief complaint: Altered Mental Status Stated complaint: Dizzness,Numbness Mouth/Hands Time Seen by Provider: 02/22/23 08:20 Source: patient Limitations: no limitations - History of Present Illness Initial comments: 27-year-old female with past history of pseudotumor cerebri who presents emergency Department reporting an episode of altered mental status at home. States that she awoke when she had sudden onset of tingling in her bilateral hands. [place] like if she couldn't speak. Admitted to a headache. No head trauma. No history of similar in the past. Does follow with Dr. Gonzalez. States that she does have a history of pseudotumor. She will get significant headaches however states that symptoms today are not consistent with her headaches. No neck pain. No fevers. No visual changes. Symptoms started at 7:30. Patient arrives and is alert and oriented. States that her symptoms are markedly improved from previous. She denies concern for . No nausea or vomiting. No alleviating, coremaker experimental modifying factors - Related Data Home Medications Medication Instructions Recorded Confirmed L-Theanine(Unknown Dose) 1 cap PO HS 02/09/23 02/09/23 Sertraline [Zoloft] 100 mg PO DAILY 02/09/23 02/09/23 acetaZOLAMIDE [Diamox] 250 mg PO DAILY 02/09/23 02/09/23 Previous Rx's Medication Instructions Recorded predniSONE 10 mg PO DIRECTED #18 tab 02/10/23 Allergies Allergy/AdvReac Type Severity Reaction Status Date / Time promethazine [From Phenergan] AdvReac "face Verified 02/22/23 08:23 dysphoria" Review of Systems ROS Statement: Those systems with pertinent positive or pertinent negative responses have been documented in the HPI. ROS Other: All systems not noted in ROS Statement are negative. Past Medical History Past Medical History: Eye Disorder, Hypertension Additional Past Medical History / Comment(s): Severe headaches where she can't see or talk, states has memory loss and her mouth and fingers are tingly. Glaucoma, Optic nerve damage. Hypertension has resolved since pt stopped drinking and smoking.` History of Any Multi-Drug Resistant Organisms: None Reported Past Surgical History: No Surgical Hx Reported Additional Past Surgical History / Comment(s): [place] teeth removal, Laser eye surgery bilateral eye. PAIN CLINIC PROCEDURES (steroid shots in the back of neck) Past Anesthesia/Blood Transfusion Reactions: No Reported Reaction Past Psychological History: Anxiety, Depression Smoking Status: Former smoker Past Alcohol Use History: Occasional Past Drug Use History: None Reported - Past Family History Mother Family Medical History: No Reported History Additional Family Medical History / Comment(s): "Heart issues" Father Additional Family Medical History / Comment(s): Father's mother and sister both at a young age of "some sort of heart issue" General Exam Limitations: no limitations General appearance: alert, in no apparent distress Head exam: Present: atraumatic, normocephalic, normal inspection Eye exam: Present: normal appearance, PERRL, EOMI. Absent: scleral icterus, conjunctival injection, periorbital swelling ENT exam: Present: normal exam, mucous membranes moist Neck exam: Present: normal inspection. Absent: tenderness, meningismus, lymphadenopathy Respiratory exam: Present: normal lung sounds bilaterally. Absent: respiratory distress, wheezes, rales, rhonchi, stridor Cardiovascular Exam: Present: regular rate, normal rhythm, normal heart sounds. Absent: systolic murmur, diastolic murmur, rubs, gallop, clicks GI/Abdominal exam: Present: soft, normal bowel sounds. Absent: distended, tenderness, guarding, rebound, rigid Extremities exam: Present: normal inspection, full ROM, normal capillary refill. Absent: tenderness, pedal edema, joint swelling, calf tenderness Back exam: Present: normal inspection Neurological exam: Present: alert, oriented X3, CN II-XII intact Psychiatric exam: Present: normal affect, normal mood Skin exam: Present: warm, dry, intact, normal color. Absent: rash Course Vital Signs 02/22/23 02/22/23 02/22/23 08:19 08:53 09:51 Temperature 97.8 F Pulse Rate 76 74 73 Respiratory 16 18 16 Rate Blood Pressure 113/80 123/83 123/91 O2 Sat by Pulse 97 98 99 Oximetry 02/22/23 10:52 Temperature Pulse Rate 73 Respiratory 20 Rate Blood Pressure 115/72 O2 Sat by Pulse 99 Oximetry EKG Findings - EKG Comments: EKG Findings:: EKG demonstrates sinus rhythm with a rate of 67. OK interval 144. QRS 109. QTC of 408. No acute ST segment elevations or depressions Medical Decision Making - Medical Decision Making Was pt. sent in by a medical professional or institution ([facility], [employer] SALESP[employer], urgent care, hospital, or half-way...) When possible be specific @ -No Did you speak to anyone other than the patient for history (EMS, parent, family, police, friend...)? What history was obtained from this source @ -No Did you review nursing and triage notes (agree or disagree)? Why? @ -I reviewed and agree with nursing and triage notes Were old charts reviewed (outside hosp., previous admission, EMS record, old EKG, old radiological studies, urgent care reports/EKG's, half-way records)? Report findings @ -No old charts were reviewed Differential Diagnosis (chest pain, altered mental status, abdominal pain women, abdominal pain men, vaginal bleeding, weakness, fever, dyspnea, syncope, headache, dizziness, GI bleed, back pain, seizure, CVA, palpatations, mental health, musculoskeletal)? @ -CVA, TIA, hyperventiltation, brain mass, hydrocephalus EKG interpreted by me (3pts min.). @ -Yes, EKG interpreted by myself. Please see EKG box for interpretation X-rays interpreted by me (1pt min.). @ -yes - interpreted by me - normal CT interpreted by me (1pt min.). @ -yes - interpreted by me - normal U/S interpreted by me (1pt. min.). @ -None done What testing was considered but not performed or refused? (CT, X-rays, U/S, labs)? Why? @ -admission for echo and neuro consult. patient refused admission What meds were considered but not given or refused? Why? @ -None Did you discuss the management of the patient with other professionals (professionals i.e. [facility] Caro, [employer] SALESPERSON, lab, RT, psych nurse, social service assistant, patient care coordinator, teacher, global chief creative officer, top case assembler)? Give summary @ -No Was smoking cessation discussed for >3mins.? @ -No Was critical care preformed (if so, how long)? @ -No Were there social determinants of health that impacted care today? How? (Homelessness, low income, unemployed, alcoholism, drug addiction, transportation, low edu. Level, literacy, decrease access to med. care, senior care, rehab)? @ -No Was there de-escalation of care discussed even if they declined (Discuss DNR or withdrawal of care, Hospice)? DNR status @ -No What co-morbidities impacted this encounter? (DM, HTN, Smoking, COPD, CAD, Cancer, CVA, ARF, Chemo, Hep., AIDS, mental health diagnosis, sleep apnea, morbid obesity)? @ -pseduotumor cerebri Was patient admitted / discharged? Hospital course, mention meds given and route, prescriptions, significant lab abnormalities, going to OR and other pertinent info. @ -Upon arrival patient's placed into room 15. Her history and physical exam was performed. IV access established laboratory studies were conducted. NIH is 0 at this time. She does go for CT as well as CT angiography. The studies are unremarkable. Chest x-ray demonstrates no acute process. Results are discussed the patient. She is requesting to go home at this time. Patient needs to follow-up with her neurologist. Recommend MRI and an EEG. Patient understood this. Return for any new or worsening symptoms. Patient discharged home in stable condition Undiagnosed new problem with uncertain prognosis? @ -yes Drug Therapy requiring intensive monitoring for toxicity (Heparin, Nitro, Insulin, Cardizem)? @ -No Were any procedures done? @ -No Diagnosis/symptom? @ -acute aphasia, acute encephalopathy, possible TIA Acute, or Chronic, or Acute on Chronic? @ -acute Uncomplicated (without systemic symptoms) or Complicated (systemic symptoms)? @ -complicated Side effects of treatment? @ -No Exacerbation, Progression, or Severe Exacerbation? @ -No Poses a threat to life or bodily function? How? (Chest pain, USA, SC, pneumonia, PE, COPD, DKA, ARF, appy, cholecystitis, CVA, Diverticulitis, Homicidal, Suicidal, threat to staff... and all critical care pts) @ -No - Lab Data Result diagrams: 02/22/23 09:03 02/22/23 09:03 Lab Results 02/22/23 02/22/23 02/22/23 Range/Units 09:03 09:03 09:03 WBC 8.3 (3.8-10.6) k/uL RBC 5.05 (3.80-5.40) m/uL Hgb 15.3 (11.4-16.0) gm/dL Hct 45.0 (34.0-46.0) % MCV 89.0 (80.0-100.0) fL MCH 30.3 (25.0-35.0) pg MCHC 34.0 (31.0-37.0) g/dL RDW 12.7 (11.5-15.5) % Plt Count 206 (150-450) k/uL MPV 7.6 Neutrophils % 71 % Lymphocytes % 21 % Monocytes % 5 % Eosinophils % 2 % Basophils % 0 % Neutrophils # 5.8 (1.3-7.7) k/uL Lymphocytes # 1.7 (1.0-4.8) k/uL Monocytes # 0.4 (0-1.0) k/uL Eosinophils # 0.1 (0-0.7) k/uL Basophils # 0.0 (0-0.2) k/uL PT 10.4 (9.0-12.0) sec INR 1.0 (<1.2) APTT 23.9 (22.0-30.0) sec Sodium 138 (137-145) mmol/L Potassium 3.7 (3.5-5.1) mmol/L Chloride 107 (98-107) mmol/L Carbon Dioxide 20 L (22-30) mmol/L Anion Gap 11 mmol/L BUN 12 (7-17) mg/dL Creatinine 0.81 (0.52-1.04) mg/dL Est GFR (CKD-EPI)AfAm >90 (>60 ml/min/1.73 sqM) Est GFR (CKD-EPI)NonAf >90 (>60 ml/min/1.73 sqM) Glucose 87 (74-99) mg/dL POC Glucose (mg/dL) (70-110) mg/dL POC Glu Cop ID Calcium 8.7 (8.4-10.2) mg/dL Total Bilirubin 0.5 (0.2-1.3) mg/dL AST 19 (14-36) U/L ALT 15 (4-34) U/L Alkaline Phosphatase 59 (38-126) U/L Troponin I (0.000-0.034) ng/mL Total Protein 6.8 (6.3-8.2) g/dL Albumin 3.9 (3.5-5.0) g/dL Urine HCG, Qual (Not Detectd) 05/08/23 05/08/23 05/08/23 Range/Units 09:03 09:10 09:18 WBC (3.8-10.6) k/uL RBC (3.80-5.40) m/uL Hgb (11.4-16.0) gm/dL Hct (34.0-46.0) % MCV (80.0-100.0) fL MCH (25.0-35.0) pg MCHC (31.0-37.0) g/dL RDW (11.5-15.5) % Plt Count (150-450) k/uL MPV Neutrophils % % Lymphocytes % % Monocytes % % Eosinophils % % Basophils % % Neutrophils # (1.3-7.7) k/uL Lymphocytes # (1.0-4.8) k/uL Monocytes # (0-1.0) k/uL Eosinophils # (0-0.7) k/uL Basophils # (0-0.2) k/uL PT (9.0-12.0) sec INR (<1.2) APTT (22.0-30.0) sec Sodium (137-145) mmol/L Potassium (3.5-5.1) mmol/L Chloride (98-107) mmol/L Carbon Dioxide (22-30) mmol/L Anion Gap mmol/L BUN (7-17) mg/dL Creatinine (0.52-1.04) mg/dL Est GFR (CKD-EPI)AfAm (>60 ml/min/1.73 sqM) Est GFR (CKD-EPI)NonAf (>60 ml/min/1.73 sqM) Glucose (74-99) mg/dL POC Glucose (mg/dL) 85 (70-110) mg/dL POC Glu Cop ID Aminata Lebron Calcium (8.4-10.2) mg/dL Total Bilirubin (0.2-1.3) mg/dL AST (14-36) U/L ALT (4-34) U/L Alkaline Phosphatase (38-126) U/L Troponin I <0.012 (0.000-0.034) ng/mL Total Protein (6.3-8.2) g/dL Albumin (3.5-5.0) g/dL Urine HCG, Qual Not Detected (Not Detectd) Disposition Clinical Impression: Acute encephalopathy Disposition: HOME SELF-CARE Condition: Stable Instructions (If sedation given, give patient instructions): Altered Mental Status (ED) Additional Instructions: You need to follow-up with your neurologist for further evaluation of your symptoms. I recommended an MRI and an EEG. Return for any new or worsening symptoms Is patient prescribed a controlled substance at d/c from ED?: No Referrals: Lazara Alberto DO [Primary Care Provider] - 1-2 days Emil Gonzalez DO [STAFF PHYSICIAN] - 1-2 days Time of Disposition: 10:48
--- NOTE | 2023-02-22 10:32 | CT ---
EXAMINATION TYPE: CT angio head neck DATE OF EXAM: 02/22/2023 HISTORY: Transient AMS COMPARISON: None CT DLP: 701.6 mGycm. Automated Exposure Control for Dose Reduction was Utilized. TECHNIQUE: CTA scan of the neck is performed without and with IV Contrast, patient injected with 65 ml mL of Isovue 370, axial images are obtained, coronal and sagittal reformatted images are reviewed. Three-D reconstructed images are created on an independent workstation and reviewed. Source images are reviewed. FINDINGS: Carotid/Vascular Structures: There is a three-vessel arch. Common carotid arteries bifurcate normally into internal and external carotid arteries. Internal carotid arteries are patent to the skull base. No focal stenosis is evident. Vertebral arteries are codominant. Cervical of Alanis: Vertebral basilar system appears normal. Posterior cerebral vasculature is unrema rkable. Internal carotid arteries bifurcate normally into A1 and M1 segments. A2 segments are normal. The anterior communicating artery is absent. Left Posterior communicating artery is absent. Right po sterior communicating artery is patent. IMPRESSION: 1. No flow-limiting stenosis bilateral carotid bifurcations. 2. Normal [place] of [place] NASCET criteria was used in interpretation of this exam?
[2023-02-22 10:58] VITALS: BP 115/72; RESP 20
== END 2023-02-22 10:57 | disposition home or self-care (01) ==
LOC: EC 08:13
DX: G93.40 Encephalopathy, unspecified (principal); I10 Essential (primary) hypertension; F32.A Depression, unspecified; F41.9 Anxiety disorder, unspecified; Z87.891 Personal history of nicotine dependence; Z79.899 Other long term (current) drug therapy; Z88.8 Allergy status to other drugs, medicaments and biological substances
CPT/HCPCS: 36415; 93005; 80053; 84484; 85025; 85610; 85730; 81025; 71046; 70496; 70450; 70498; 99285; 96374; 96375 ×2; 96361; J1200; J2765; J1885; Q9967

== ENCOUNTER → 2023-12-03 | Outpatient (CLI) | payer BC, OTHER ==
[2023-12-03 18:59] LABS: HCT 44.9 % (37.2-46.3); MCH 30.5 pg (27.0-32.0); MCHC 33.4 g/dL (32.0-37.0); MCV 91.4 FL (80.0-97.0); Mean Platelet Volume 10.5 FL (9.5-12.2); NRBC Per 100 WBC 0 X 10*3/uL (0.00-0.01); Platelet Count 230 X 10*3/uL (140-440); RBC 4.91 X 10*6/uL (4.10-5.20); RDW 12.6 % (11.5-14.5); WBC 6.74 X 10*3/uL (4.50-10.00)
[2023-12-03 20:31] LABS: % Iron Saturation 24.73 (12.00-45.00); C Reactive Protein <0.30 mg/dL (0.00-0.80); Iron 92 UG/DL (50-170); Total Iron Binding Capacity 372 UG/DL (228-460)
[2023-12-03 21:24] LABS: Gliadin AB IgA, Deaminated Negative (Negative); Gliadin AB IgA, Unit 1.4 U/mL
[2023-12-03 21:59] LABS: Gliadin AB IgG, Deaminated Negative (Negative); Gliadin AB IgG, Unit <0.4 U/mL
== END | disposition home or self-care (01) ==
LOC: LABWHC1 12:30
PROVIDERS: ATTEND Family Medicine
DX: R19.7 Diarrhea, unspecified (principal); R53.83 Other fatigue; Z83.79 Family history of other diseases of the digestive system
CPT/HCPCS: 36415; 82607; 83516; 83540; 83550; 83993; 85027; 86001; 86038; 86140

== ENCOUNTER 2024-03-07 06:52 | Day surgery (SDC) | payer BC, OTHER ==
[2024-03-02 11:12] VITALS: BMI 33.6
[2024-03-07] MEDS ORDERED: LIDOCAINE 1% (10MG/ML) FOR IV START INTRADERMA PRN (07:32)
[2024-03-07 07:52] VITALS: RESP 16; TEMP 97.7
[2024-03-07] MEDS: LACTATED RINGERS 1,000 ML IV SCH (07:53)
[2024-03-07] MEDS ORDERED: PROPOFOL 10 MG/ML 20 ML VIAL IV ONE (07:56)
--- NOTE | 2024-03-07 08:14 | P.PCN ---
Date of Procedure: 03/07/24 Procedure(s) Performed: Brief history: Patient is a pleasant 28-year-old white female scheduled for an elective upper endoscopy as well as colonoscopy as a part of evaluation of abdominal pain, change in bowel habits with alternating diarrhea and constipation for the last 1 year duration. Has occasional nausea vomiting. No recent weight loss. Procedure performed: Esophagogastroduodenoscopy biopsy Colonoscopy Preoperative diagnosis: Nausea/vomiting/abdominal pain Change in bowel habits Anesthesia: MAC Procedure: After informed consent was obtained from the patient was brought into the endoscopy unit and IV sedation was administered by anesthesia under continuous monitoring. Initially upper endoscopy was done. The Olympus GF 160 video endoscope was inserted inserted into the mouth and esophagus intubated without any difficulty and was gradually advanced into the stomach and duodenum and carefully examined. The bulb and second part of the duodenum appeared normal. The scope was then withdrawn into the stomach adequately insufflated with air and upon careful examination the antrum had linear areas of erythema consistent with gastritis and biopsies were done from this area. Mucosa of the body, cardia and fundus appeared normal. The scope was then withdrawn into the esophagus. The GE junction was located at 40 cm to the incisors. It appeared regular with no erythema erosions or ulcerations. Rest of the esophagus appeared normal. Patient tolerated the procedure well. At this time the patient continued to remain sedation. Initial digital rectal examination was normal. Olympus CF 160 video colonoscope was then inserted into the rectum and gradually advanced to the cecum without any difficulty. Careful examination was performed as the scope was gradually being withdrawn. The prep was excellent. The terminal ileum was intubated in 20 cm visualized and appeared normal. The cecum, ascending colon, transverse colon, descending colon, sigmoid colon and rectum appeared normal. Retroflexion was performed in the rectum and no lesions were noted. Patient tolerated the procedure well. Impression: 1. Upper endoscopy revealed linear areas of erythema in the antrum consistent with gastritis, no evidence of esophagitis or peptic ulcer disease 2. Colonoscopy was within normal limits with no evidence of colitis or colorectal neoplasia. Normal-appearing terminal ileum. Recommendations: Findings of this examination were discussed with the patient as well as her family. She was advised to follow-up with the biopsy results. Continue the high-fiber diet and fiber supplements on a regular basis. Follow-up in the office if she has worsening symptoms.
[2024-03-07 08:47] VITALS: BP 103/67; PULSE 78
== END 2024-03-07 08:55 | disposition home or self-care (01) ==
LOC: ORWHC2ENDO 06:52
PROVIDERS: ATTEND Internal Medicine Gastroenterology
DX: K29.50 Unspecified chronic gastritis without bleeding (principal); R19.4 Change in bowel habit; I10 Essential (primary) hypertension; F41.9 Anxiety disorder, unspecified; F32.A Depression, unspecified; Z79.899 Other long term (current) drug therapy
CPT/HCPCS: 81025; 88305; 45378; 43239; J2704